=== PATIENT | female | born 1955 | race Caucasian/White ===

== ENCOUNTER 2022-03-22 19:39 | Emergency (ER) | payer MEDICARE, SELFPAY ==
--- NOTE | ~2022-03-22 | CT_ITS ---
EXAMINATION: CT abdomen pelvis w con DATE: 03/22/2022 23:29 INDICATION: Constipation. Nausea. TECHNIQUE: Computed tomography (CT) of the abdomen and pelvis was performed with 100 mL Omnipaque 350 intravenous contrast. Automated exposure control and iterative reconstruction technique were employe d. The dose-length product was 244.39 mGy-cm. COMPARISON: None. FINDINGS: The visualized portions of the lung bases demonstrate mild atelectasis. No pleural effusion . The heart size is normal. No pericardial effusion. The liver is normal. There is a gallstone in the gallbladder, which is normal in size. The spleen, pancreas, and right adrenal gland are normal. Ther e is a 3.7 cm mass in left adrenal gland with central calcifications. The kidneys are normal. There i s a 5.3 cm fusiform aneurysm of infrarenal aorta. 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 There is diverticulosis of the colon without evidence of di verticulitis. The appendix is normal. There are no pathologically enlarged lymph nodes. There is no f ree intraperitoneal fluid. There is lumbar dextroscoliosis and severe spondylosis. IMPRESSION: 1. 5.3 cm fusiform aneurysm of infrarenal aorta. Surgical consultation is recommended. 2. 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 3. 3.7 cm left adrenal mass, which is indeterminate for malignancy. Abdomen CT without and with contr ast is recommended. Reviewed, dictated and finalized at location A. MA HAT HYDRAULIC PRESS OPERATOR IMPRESSION: 1. 5.3 cm fusiform aneurysm of infrarenal aorta. Surgical consultation is recom mended. 2. 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 3. 3.7 cm left adrenal mass, which is indeterminate for malignancy. Abdomen CT without and with contrast is recommended.
--- NOTE | ~2022-03-22 | XR_ITS ---
EXAMINATION: XR abdomen/kub 1V INDICATION: Vomiting TECHNIQUE: Supine views of the abdomen were obtained on 2 radiographs. COMPARISON: None FINDINGS: There are 30 degrees of lumbar levoscoliosis. There are no dilated loops of bowel. The abdo men is relatively gasless. Phleboliths are noted in the right pelvis. There is severe lumbar spondylo sis. The visualized lung bases are clear. There is a questionable fusiform aneurysm of the abdominal aorta. IMPRESSION: 1. No radiographic correlate for the patient's symptoms. 2. Possible abdominal aortic aneurysm. Consider further evaluation with CT. Reviewed, dictated and finalized at location F. ERNAIL SCULPTOR
[2022-03-22 20:00] VITALS: BP 151/62; PULSE 67; RESP 20; TEMP 36.3; O2SAT 97
[2022-03-22 20:43] LABS: Basophils Absolute Auto 0.1 K/mm3 (0.0-0.1); Basophils Percent Auto 0.5 % (0.2-1.2); Eosinophils Percent Auto 0.2 % (0-4.4); Hematocrit 44.4 % (37.0-47.0); Immature Granulocyte Absolute 0.05 K/mm3 (0.00-0.031); Immature Granulocyte Percent A 0.4 % (0-0.5); Lymphocytes Absolute Auto 1.45 K/mm3 (0.9-3.2); Lymphocytes Percent Auto 11.3 % (18.3-44.2); Mean Corpuscular HGB Conc 33.8 g/dl (32-36); Mean Corpuscular Volume 91.7 fl (80-100); Mean Platelet Volume 10.6 fl (7.4-10.4); Monocytes Absolute Auto 0.2 K/mm3 (0.1-0.6); Monocytes Percent Auto 1.7 % (2.6-8.5); Neutrophils Percent Auto 85.9 % (45.5-73.1); Platelet Count Result 441 k/mm3 (150-375); Red Blood Count 4.84 M/mm3 (4.2-5.4); Red Cell Distribution Width 12.5 % (11.5-14.5); White Blood Count 12.8 K/mm3 (4.5-10.0)
[2022-03-22 20:57] LABS: Alanine Aminotransferase 13 U/L (6-35); Albumin Level 4.6 g/dL (3.5-5.1); Alkaline Phosphatase 105 U/L (38-126); Anion Gap 14 mmol/L (8-16); Aspartate Amino Transferase 19 U/L (14-36); Bilirubin,Total 0.6 mg/dL (0.2-1.3); Blood Urea Nitrogen 11 mg/dL (7-17); Calcium 9.7 mg/dL (8.4-10.2); Carbon Dioxide 28 mmol/L (22-30); Chloride 100 mmol/L (98-107); Estimated CRCL calculation 60 ml/min; Estimated Glomerular Filt Rate > 60; Glucose 166 mg/dL (65-110); Lipase 29 U/L (23-300); Potassium 3.5 mmol/L (3.4-5.0); Sodium 142 mmol/L (137-145)
[2022-03-22 21:37] VITALS: PULSE 61; RESP 13; O2SAT 99
[2022-03-22 21:45] VITALS: PULSE 58; RESP 20; O2SAT 99
[2022-03-22 22:00] VITALS: PULSE 57; RESP 15; O2SAT 98
[2022-03-22] MEDS: ONDANSETRON INJ 4 MG/2 ML VIAL IV PUSH (22:10)
[2022-03-22] MEDS: SODIUM CHLORIDE 0.9% IV 1,000 ML 999 ML IV CONT (22:10)
[2022-03-22] MEDS: FAMOTIDINE 20 MG/2 ML VIAL IV PUSH (22:10)
[2022-03-22 22:37] VITALS: BP 112/68; PULSE 82; RESP 19; O2SAT 97
[2022-03-22 23:03] LABS: Troponin I < 0.012 ng/mL (0.000-0.034)
[2022-03-22 23:19] LABS: Appearance Urine Cloudy (Clear); Bilirubin Urine Negative (Negative); Blood Urine Trace-intact (Negative); Color Urine Yellow (Yellow); Glucose Urine UA Negative (Negative); Ketones Urine 2+ mg/dL (Negative); Leukocyte Esterase Ur Negative LEU/UL (Negative); Nitrate Urine Negative (Negative); Protein Urine Negative (Negative); Urobilinogen Urine 0.2 mg/dL (<2.0); pH Urine 7.5 (5.0-9.0)
[2022-03-22 23:22] LABS: Bacteria Urine Trace /hpf; Mucus Urine Rare /lpf; Squamous Epithelial Cell Urine Rare /hpf (Few); WBC Urine 0-3 /hpf
[2022-03-22 23:23] LABS: Add Urine Microscopic? YES
[2022-03-22] MEDS: diphenhydrAMINE HCl INJ 50 MG/ML VIAL 12.5 MG IV PUSH (23:34)
[2022-03-22] MEDS: METOCLOPRAMIDE HCL INJ 10 MG/2 ML VIAL IV PUSH (23:34)
[2022-03-22 23:38] VITALS: BP 160/79; PULSE 77; RESP 18; O2SAT 97
[2022-03-22 23:51] LABS: Amphetamine Screen Urine Negative (Negative); Barbiturate Screen Urine Negative (Negative); Benzodiazepines Screen Urine Negative (Negative); Cannabinoid Screen Urine Negative (Negative); Cocaine Screen Urine Negative (Negative); Methadone Screen Urine Negative (Negative); Opiate Screen Urine Negative (Negative); Phencyclidine Screen Urine Negative (Negative)
--- NOTE | 2022-03-23 00:39 | ED.NAVMDI ---
HPI - Nausea/Vomiting/Diarrhea General Chief complaint: Nausea/Vomiting/Diarrhea Stated complaint: nausea Time Seen by Provider: 03/22/22 21:29 Source: patient Mode of arrival: ambulatory Limitations: no limitations History of Present Illness HPI Narrative: 67-year-old female presents today with complaints of nausea and dry heaves after she took some Dulcolax this morning. Patient states she was constipated for the last 4 days took some Dulcolax this morning did have a BM but has been nauseated since then with some dry heaves. Patient has not vomited. She denies any abdominal pain at this time. Patient does have some low back pain she has had for about 4 days. She denies dysuria, hematuria, urinary frequency, fever, chills, body aches. Related Data Allergies Allergy/AdvReac Type Severity Reaction Status Date / Time No Known Allergies Allergy Mild Verified 03/22/22 20:03 Review of Systems Review of Systems: CONSTITUTIONAL: Denies fever, chills, or sweats. EYES: Denies visual changes, redness, or discharge. ENT: Denies rhinorrhea, congestion, sore throat, or otalgia. CARDIOVASCULAR: Denies chest pain, palpitations, or edema. RESPIRATORY: Denies cough or dyspnea. GASTROINTESTINAL: Nausea and dry heaves. Denies abdominal pain, vomiting, or diarrhea. GENITOURINARY: Denies dysuria or hematuria. SKIN: Denies rash or itching. MUSCULOSKELETAL: Low back pain. denies joint pain, or myalgia. NEUROLOGIC: Denies headache, numbness, dizziness, or weakness. PSYCHIATRIC: Denies anxiety or depression. PMFSH Family History Family History Father Acute myocardial infarction, Onset Age: 68 Patient's father is Mother Family history of kidney disease Patient's mother is Social History Social History Smoking status: Current every day smoker Tobacco type: cigarettes Second hand tobacco smoke exposure: No Alcohol intake: never Substance use: never Exam Narrative: GENERAL: Well-appearing, well-nourished, and in no acute distress. HEAD: Normocephalic, atraumatic. EYES: PERRLA and EOMI. NECK: Supple. No adenopathy or masses. No carotid bruits or JVD CHEST: Clear to auscultation. No respiratory distress. No wheezes rales or rhonchi HEART: Regular rate and rhythm. No murmur heard. Normal peripheral pulses. ABDOMEN: Soft, nontender, nondistended, normal active bowel sounds. EXTREMITIES: Normal range of motion. No edema. SKIN: Warm, dry, no rash. NEURO: No focal deficits. Alert and oriented x3. PSYCH: Normal mood and affect. Course Course Emergency Course: Patient with improvement after the Zofran and denies any vomiting but with continued nausea. Reglan and Benadryl then given. Patient still with continued nausea. Minimal fluid intake. Patient given Haldol IM. Still continued nausea but states some improvement. She is able to tolerate Sprite. Will discharge home plan follow-up with primary and to return with any new or concerning symptoms. Reevaluation(s) Reevaluation #1: Patient still with nausea and some dry heaves medication ordered. Date: 03/22/22 Time: 23:25 Reevaluation #2: Patient currently still with nausea but it is better. No dry heaves. Will p.o. challenge. Date: 03/23/22 Time: 00:49 Vital Signs Vital signs: Vital Signs Temperature 97.4 F L 03/22/22 20:00 Pulse Rate 67 03/22/22 20:00 Respiratory Rate 20 03/22/22 20:00 Blood Pressure 151/62 H 03/22/22 20:00 Pulse Oximetry 97 03/22/22 20:00 Oxygen Delivery Room Air 03/22/22 20:00 Temperature 97.4 F L 03/22/22 20:00 Pulse Rate 95 03/23/22 02:12 Respiratory Rate 18 03/23/22 02:12 Blood Pressure 147/63 H 03/23/22 02:12 Pulse Oximetry 99 03/23/22 02:12 Oxygen Delivery Room Air 03/22/22 20:00 MDM - Nausea/Vomiting/Diarrhea MDM Narrative Medical decision patrick
[2022-03-23] MEDS: HALOPERIDOL LACTATE 5 MG/ML VIAL 2.5 MG IM (02:11)
[2022-03-23 02:12] VITALS: BP 147/63; PULSE 95; RESP 18; O2SAT 99
== END 2022-03-23 03:06 | disposition home or self-care (01) ==
PROVIDERS: Emergency Medicine; Emergency Provider Nurse Practitioner Family; PCP Internal Medicine
DX: R11.0 Nausea (principal); F17.210 Nicotine dependence, cigarettes, uncomplicated; I71.43 Infrarenal abdominal aortic aneurysm, without rupture; I74.5 Embolism and thrombosis of iliac artery; E27.9 Disorder of adrenal gland, unspecified; Z79.899 Other long term (current) drug therapy
CPT/HCPCS: 36415; 74018; 74177; 80053; 80307; 81001; 83690; 84484; 85025; 96372; 96374; 96375; 99284; J1200; J1630; J2405; J2765; J7030; Q9967

== ENCOUNTER 2022-03-27 09:32 | Observation (INO) | payer MEDICARE, SELFPAY ==
[2022-03-27] VITALS (28 sets, daily range): BP systolic 101–162; BP diastolic 53–82; PULSE 60–96; RESP 13–22; TEMP 36.5; O2SAT 90–100; BMI 20.9
--- NOTE | ~2022-03-27 | US_ITS ---
EXAMINATION: US abdomen limited DATE: 03/27/2022 12:08 INDICATION: Epigastric pain, nausea, vomiting and gallstones. TECHNIQUE: Multiple grayscale and Doppler ultrasound images of the abdomen were obtained. COMPARISON: CT dated 03/27/2022 and 03/22/2022 FINDINGS: Visualized portion of the body of the pancreas appears normal. Portions of the head and tail are obsc ured. Liver has normal echogenicity and contour, with a smooth surface. No liver lesion identified. M inimal intrahepatic biliary duct dilation which appears similar on the prior CT studies. Portal venou s flow was seen in the hepatopetal, normal direction and has normal Doppler waveform. 1.6 cm shadowin g gallstone at the fundus of the normal-appearing nondilated gallbladder. The common bile duct measur es 3 mm, which is normal. Sonographic Wen sign was reported as positive by the product craftsman.The vis ualized proximal inferior vena cava is normal. 5.3 cm diameter fusiform abdominal aortic aneurysm. IMPRESSION: 1. Cholelithiasis with positive sonographic Wen's on but without evident dilation the gallbladder or abnormal gallbladder wall thickening to more specifically suggest acute cholecystitis. Could consi heydi HIDA scan for further evaluation for acute cholecystitis as clinically indicated. 2. Unchanged minimal central intrahepatic biliary ductal dilation which is unchanged since 03/22/2022 and with normal caliber common bile duct. Correlate with liver function tests. If clinically indicat ed could also consider MRCP for further evaluation. 3. 5.3 cm fusiform abdominal aortic aneurysm. Reviewed, dictated and finalized at location A. ATIONS TEAM LEADER IMPRESSION: 1. Cholelithiasis with positive sonographic Wen's on but without evident dil ation the gallbladder or abnormal gallbladder wall thickening to more specifica lly suggest acute cholecystitis. Could consider HIDA scan for further evaluatio n for acute cholecystitis as clinically indicated. 2. Unchanged minimal central intrahepatic biliary ductal dilation which is unch anged since 03/22/2022 and with normal caliber common bile duct. Correlate with liver function tests. If clinically indicated could also consider MRCP for fur ther evaluation. 3. 5.3 cm fusiform abdominal aortic aneurysm.
--- NOTE | ~2022-03-27 | CT_ITS ---
EXAMINATION: CT abdomen pelvis w con DATE: 03/27/2022 10:37 INDICATION: Epigastric pain, nausea and vomiting TECHNIQUE: Computed tomography (CT) of the abdomen and pelvis was performed with 100 mL Omnipaque-350 intravenous contrast. Automated exposure control and iterative reconstruction technique were employe d. The dose-length product was 175.58 mGy-cm. COMPARISON: None FINDINGS: Near linear band of discoid atelectasis in the left lower lobe along with more nodular opacities at t he anterobasilar left lower lobe which are new since study from 5 days prior which would be most cons istent with pneumonia. Heart size is normal. No pericardial or pleural effusion. Geographic region of focal hepatic steatosis at the ligamentum teres. Rim calcified gallstone within the decompressed gal lbladder. No intra or extra hepatic biliary ductal dilation. Pancreas, spleen, right adrenal gland an d bilateral kidneys are normal. 3.5 cm left adrenal mass with central calcifications. 5.2 similar fus iform infrarenal abdominal aortic aneurysm. Chronic total occlusion of the left common and external i liac arteries. There is reconstitution of flow in the left internal iliac and left common femoral art eries via collaterals. Bladder, anteverted uterus and lateral adnexa are unremarkable. There is moder ate colonic diverticulosis with a sigmoid predominance. There is no adjacent inflammatory change to suggest diverticulitis. Small bowel and appendix are normal. No free intraperitoneal gas or fluid. N o pathologically enlarged abdominal or pelvic lymphadenopathy. Lumbar dextroscoliosis with severe spo ndylosis. IMPRESSION: 1. Somewhat nodular lung disease at the anterobasilar left lower lobe new since study 5 days prior wh ich would be most consistent with pneumonia. 2. Cholelithiasis. 3. 5.2 cm fusiform infrarenal abdominal aortic aneurysm for which surgical consultation would be kev mmended. 4. Unchanged total occlusion of the left common and external iliac arteries. 5. Indeterminate 3.5 cm left adrenal mass. Would recommend further evaluation with pre and postcontra st MRI or CT. Reviewed, dictated and finalized at location A. RONMENTAL HEALTH AND SAFETY INTERN IMPRESSION: 1. Somewhat nodular lung disease at the anterobasilar left lower lobe new since study 5 days prior which would be most consistent with pneumonia. 2. Cholelithiasis. 3. 5.2 cm fusiform infrarenal abdominal aortic aneurysm for which surgical cons ultation would be recommended. 4. Unchanged total occlusion of the left common and external iliac arteries. 5. Indeterminate 3.5 cm left adrenal mass. Would recommend further evaluation w ith pre and postcontrast MRI or CT.
--- NOTE | ~2022-03-27 | NM_ITS ---
EXAMINATION: NM hepatobiliary w pharm DATE: 03/29/2022 14:37 INDICATION: Cholelithiasis. COMPARISON: None. TECHNIQUE: 5.0 mCi Tc-99m mebrofenin (Choletec) was administered intravenously. Scintigraphic images of the abdomen were obtained for one hour. 1.06 mcg sincalide (Kinevac) was administered by slow int ravenous infusion, and imaging was continued for 30 minutes. Gallbladder ejection fraction was calcul ated by the technologist. FINDINGS: There is normal clearance of radiotracer from the blood pool. There is homogeneous tracer uptake by t he liver. Activity progresses to the gallbladder and bowel. The gallbladder ejection fraction (GBEF) is 63% (normal 10-90%, but most patient with gallbladder dysfunction have GBEF < 35% which does over lap with the normal range). IMPRESSION: 1. Normal hepatobiliary scan. Reviewed, dictated and finalized at location A. D AND PASTRY BAKER
[2022-03-27 09:51] LABS: Basophils Percent Auto 0.2 % (0.2-1.2); Hematocrit 48.3 % (37.0-47.0); Hemoglobin 16.4 g/dL (12.0-15.0); Immature Granulocyte Absolute 0.07 K/mm3 (0.00-0.031); Immature Granulocyte Percent A 0.4 % (0-0.5); Lymphocytes Absolute Auto 1.53 K/mm3 (0.9-3.2); Lymphocytes Percent Auto 8.8 % (18.3-44.2); Mean Corpuscular Hemoglobin 31.2 pg (26-34); Mean Platelet Volume 10.7 fl (7.4-10.4); Monocytes Absolute Auto 0.7 K/mm3 (0.1-0.6); Monocytes Percent Auto 4.2 % (2.6-8.5); Neutrophils Percent Auto 86.4 % (45.5-73.1); Platelet Count Result 414 k/mm3 (150-375); Red Blood Count 5.25 M/mm3 (4.2-5.4); Red Cell Distribution Width 12.8 % (11.5-14.5); White Blood Count 17.3 K/mm3 (4.5-10.0)
[2022-03-27 10:05] LABS: Alanine Aminotransferase 17 U/L (6-35); Albumin Level 4.5 g/dL (3.5-5.1); Alkaline Phosphatase 99 U/L (38-126); Anion Gap 12 mmol/L (8-16); Aspartate Amino Transferase 21 U/L (14-36); Bilirubin,Total 0.6 mg/dL (0.2-1.3); Blood Urea Nitrogen 21 mg/dL (7-17); Calcium 9.8 mg/dL (8.4-10.2); Carbon Dioxide 33 mmol/L (22-30); Chloride 98 mmol/L (98-107); Estimated CRCL calculation 63 ml/min; Estimated Glomerular Filt Rate > 60; Glucose 143 mg/dL (65-110); Lipase 41 U/L (23-300); Potassium 3.1 mmol/L (3.4-5.0); Sodium 143 mmol/L (137-145)
--- NOTE | 2022-03-27 10:09 | ED.NAVMDI ---
HPI - Nausea/Vomiting/Diarrhea General Chief complaint: Nausea/Vomiting/Diarrhea <Tamra Putnam PA-C - Last Filed: 03/27/22 14:56> Stated complaint: nausea <Tamra Putnam PA-C - Last Filed: 03/27/22 14:56> Time Seen by Provider: 03/27/22 09:54 <Tamra Putnam PA-C - Last Filed: 03/27/22 14:56> Source: patient <SUSHIL Knight Last Filed: 03/27/22 14:56> Mode of arrival: ambulatory <Tamra Putnam PA-C - Last Filed: 03/27/22 14:56> Limitations: no limitations <Tamra Putnam PA-C - Last Filed: 03/27/22 14:56> History of Present Illness HPI Narrative: This is a 67 year old female that presents to the ER for nausea and vomiting. Ongoing over the last week. Reports she was seen in the ER for this 4 days ago. She was feeling better initially, but symptoms have now returned. Reports burning epigastric pain. Denies fever, chest pain, shortness of breath, diarrhea, or dysuria. <Tamra Putnam PA-C - Last Filed: 03/27/22 14:56> Related Data Allergies/Adverse reactions: Allergies Allergy/AdvReac Type Severity Reaction Status Date / Time No Known Allergies Allergy Mild Verified 03/27/22 09:42 <Tamra Putnam PA-C - Last Filed: 03/27/22 14:56> Review of Systems Review of Systems: CONSTITUTIONAL: Denies fever CARDIOVASCULAR: Denies chest pain RESPIRATORY: Denies dyspnea. GASTROINTESTINAL: Reports abdominal pain, nausea, vomiting. Denies diarrhea. GENITOURINARY: Denies dysuria <Tamra Putnam PA-C - Last Filed: 03/27/22 14:56> All systems reviewed & are unremarkable except as noted in HPI and below <Tamra Putnam PA-C - Last Filed: 03/27/22 14:56> [facility] Past Medical History Medical History: Medical History (Updated 03/27/22 @ 14:53 by Tamra L. Putnam, PA-C) History of hyperlipidemia History of hypothyroidism <Tamra Putnam PA-C - Last Filed: 03/27/22 14:56> Surgical History Surgical History: Surgical History (Updated 03/27/22 @ 14:32 by Gloria Ko NP) H/O knee surgery H/O tubal ligation H/O unilateral oophorectomy <Tamra Putnam PA-C - Last Filed: 03/27/22 14:56> Family History Family History: Family History Father Acute myocardial infarction, Onset Age: 68 Patient's father is Mother Family history of kidney disease Patient's mother is <Tamra Putnam PA-C - Last Filed: 03/27/22 14:56> Social History Social History: Social History (Updated 03/27/22 @ 14:32 by Gloria Ko NP) Social History: [facility] Smoking status: Current every day smoker Tobacco type: cigarettes Second hand tobacco smoke exposure: No Alcohol intake: never Substance use: never <Tamra Putnam PA-C - Last Filed: 03/27/22 14:56> Exam Narrative: GENERAL: Well-appearing, well-nourished, and in no acute distress. HEAD: Normocephalic, atraumatic. EYES: EOMI. ENT: Nares clear, no rhinorrhea or epistaxis. Mucous membranes dry. Oropharynx without tonsillar hypertrophy exudate or other lesions. CHEST: Clear to auscultation. No respiratory distress. No wheezes rales or rhonchi HEART: Regular rate and rhythm. No murmur heard. Normal peripheral pulses. ABDOMEN: Soft, nondistended, normal active bowel sounds. Mild tenderness to palpation in the epigastrium, without guarding. EXTREMITIES: Normal range of motion. No edema. Normal DP pulse on the right. Able to doppler DP and PT pulse in the left SKIN: Warm, dry, no rash. NEURO: No focal deficits. Alert and oriented x3. PSYCH: Normal mood and affect <Tamra Putnam PA-C - Last Filed: 03/27/22 14:56> Course FOREST ECOLOGY PROFESSOR/PA Physician Supervision For this patient encounter, I reviewed the FOREST ECOLOGY PROFESSOR or PA documentation, treatment plan, and medical decision making; and I had [id number] time with this patient. <Ayla Jimenez MD - Last Filed: 03/27/22 13:39> Consultations Co
[2022-03-27] MEDS: SODIUM CHLORIDE 0.9% IV 1,000 ML 999 ML IV CONT (10:14)
[2022-03-27] MEDS: ONDANSETRON INJ 4 MG/2 ML VIAL IV PUSH (10:15)
[2022-03-27] MEDS: PANTOPRAZOLE SODIUM IV 40 MG VIAL IV PUSH ×2 (10:16→20:54)
[2022-03-27] MEDS: METOCLOPRAMIDE HCL INJ 10 MG/2 ML VIAL IV PUSH (11:34)
[2022-03-27] MEDS: diphenhydrAMINE HCl INJ 50 MG/ML VIAL 25 MG IV PUSH ×2 (11:34→23:26)
[2022-03-27 11:36] LABS: Mucus Urine Rare /lpf; RBC Urine 0-2 /hpf (0-2); Squamous Epithelial Cell Urine Rare /hpf (Few); WBC Urine 0-3 /hpf
[2022-03-27 11:41] LABS: Appearance Urine Clear (Clear); Bilirubin Urine Negative (Negative); Blood Urine Trace-lysed (Negative); Color Urine Yellow (Yellow); Glucose Urine UA Negative (Negative); Ketones Urine Negative (Negative); Leukocyte Esterase Ur Negative LEU/UL (Negative); Nitrate Urine Negative (Negative); Protein Urine Negative (Negative); Specific Grav Ur 1.015 (1.001-1.035); Urobilinogen Urine 0.2 mg/dL (<2.0); pH Urine 7.5 (5.0-9.0)
[2022-03-27 11:47] LABS: Add Urine Microscopic? YES
--- NOTE | 2022-03-27 14:29 | PM.IMHP ---
H&P: HPI History of Present Illness Date/Time: 03/27/22 14:29 Chief Complaint: Nausea vomiting diarrhea Narrative: This is a 67-year-old female patient who has been complaining of nausea vomiting for the last week. She had been seen in this emergency room 4 days ago and had the symptoms for 4 days prior to coming into the ER that time. So she has had symptoms for total of 8 days. The patient was discharged home at that time. She denies any fever chest pain or shortness of breath no difficulty urinating. Her white count is 17.3. Potassium slightly low at 3.1. BUN 21 and creatinine 0.60 her urine toxicology screen was negative. Abdominal pelvis CT was read as following 1. Somewhat nodular lung disease at the anterobasilar left lower lobe new since study 5 days prior which would be most consistent with pneumonia. 2. Cholelithiasis. 3. 5.2 cm fusiform infrarenal abdominal aortic aneurysm for which surgical consultation would be recommended. 4. Unchanged total occlusion of the left common and external iliac arteries. 5. Indeterminate 3.5 cm left adrenal mass. Would recommend further evaluation with pre and postcontrast MRI or CT. The ER provider notify Dr. garcia concerning these findings. The patient was given Dr. Garcia as well number The patient was given IV fluids, IV Tylenol, Reglan, Zofran and Benadryl. The patient has not slept for days.. The patient was diagnosed with pneumonia and was started on a Zithromax and Rocephin. Abdominal ultrasound was read as the following 1. Cholelithiasis with positive sonographic Wen's on but without evident dilation the gallbladder or abnormal gallbladder wall thickening to more specifically suggest acute cholecystitis. Could consider HIDA scan for further evaluation for acute cholecystitis as clinically indicated. 2. Unchanged minimal central intrahepatic biliary ductal dilation which is unchanged since 03/22/2022 and with normal caliber common bile duct. Correlate with liver function tests. If clinically indicated could also consider MRCP for further evaluation. 3. 5.3 cm fusiform abdominal aortic aneurysm. Patient was admitted for observation status on a date of service of 03/27/2022. Review of Systems Review of Systems: See HPI All systems reviewed & are unremarkable except as noted in HPI and below Constitutional: Constitutional: Reports as per HPI and Reports no additional constitutional complaints Eyes: Eyes: Reports as per HPI and Reports no additional eye complaints ENT: Reports system reviewed and no additional complaints, except as documented and Reports Normal hearing present Cardiovascular: Cardiovascular: Reports no additional cardiovascular complaints Respiratory: Respiratory: Reports no additional respiratory complaints and Reports no additional respiratory complaints Gastrointestinal: Gastrointestinal: Reports as per HPI and Reports no additional gastrointestinal complaints Musculoskeletal: Musculoskeletal: Reports no additional musculoskeletal complaints Integumentary/Breasts: Skin/Breast: Reports system reviewed and no additional complaints, except as docu and Reports as per HPI Neurologic: Reports system reviewed and no additional complaints, except as documented, Reports as per HPI and Reports Normal hearing present Psychiatric: Psychiatric: Reports no additional psychiatric complaints and Reports as per HPI Endocrine: Endocrine: Reports no additional endocrine complaints Hematologic/Lymphatic: Hematologic/Lymphatic: Reports no additional hematologic/lymphatic complaints Allergic/Immunologic: Allergic/Immunologic: Reports no additional allergic/immunologic complaints [facility] Past Medical History Medical History History of hyperlipidemia History of hypothyroidism Surgical History Surgical History H/O knee surgery H/O tubal ligation H/O unilateral oophorectomy
[2022-03-27] MEDS: SODIUM CHLORIDE 0.9% IV 1,000 ML 125 ML IV CONT ×2 (15:12→23:23)
--- NOTE | 2022-03-27 15:30 | PC.NURSE ---
This patient, Camilla Espino, was admitted to [facility] Surg Room 313-01. Patient/family oriented to hospital policies and general routines including ID bracelet, bed and alarms, visiting hours, pain management, procedures, bathroom and other care routines, personal items, smoking policy, room service/diet, and visiting hours. Information on how to activate the Rapid Response Team has been discussed. Patient/Family are encouraged to report perceived risks to care and to ask questions if they do not understand what they are told or what they should do.
[2022-03-27] MEDS: POTASSIUM CHLORIDE INJ 40 MEQ in SODIUM CHLORIDE 0.9% IV 500 ML 130 MEQ IVPB (16:36)
[2022-03-27] MEDS: METOCLOPRAMIDE HCL INJ 10 MG/2 ML VIAL 5 MG IV PUSH ×3 (19:25→23:23)
[2022-03-27 20:06] LABS: Anion Gap 8 mmol/L (8-16); Blood Urea Nitrogen 16 mg/dL (7-17); Calcium 8.8 mg/dL (8.4-10.2); Carbon Dioxide 27 mmol/L (22-30); Chloride 105 mmol/L (98-107); Estimated CRCL calculation 63 ml/min; Estimated Glomerular Filt Rate > 60; Glucose 150 mg/dL (65-110); Potassium 3.3 mmol/L (3.4-5.0); Sodium 140 mmol/L (137-145)
[2022-03-28] MEDS: METOCLOPRAMIDE HCL INJ 10 MG/2 ML VIAL 5 MG IV PUSH ×3 (05:28→17:21)
[2022-03-28 05:48] LABS: Basophils Absolute Auto 0.1 K/mm3 (0.0-0.1); Basophils Percent Auto 0.3 % (0.2-1.2); Eosinophils Percent Auto 0.1 % (0-4.4); Hematocrit 41.3 % (37.0-47.0); Immature Granulocyte Absolute 0.04 K/mm3 (0.00-0.031); Immature Granulocyte Percent A 0.3 % (0-0.5); Lymphocytes Absolute Auto 1.89 K/mm3 (0.9-3.2); Lymphocytes Percent Auto 12.8 % (18.3-44.2); Mean Corpuscular HGB Conc 33.9 g/dl (32-36); Mean Corpuscular Hemoglobin 30.8 pg (26-34); Mean Platelet Volume 10.8 fl (7.4-10.4); Monocytes Absolute Auto 0.8 K/mm3 (0.1-0.6); Monocytes Percent Auto 5.5 % (2.6-8.5); Platelet Count Result 366 k/mm3 (150-375); Red Blood Count 4.54 M/mm3 (4.2-5.4); Red Cell Distribution Width 12.6 % (11.5-14.5); White Blood Count 14.8 K/mm3 (4.5-10.0)
[2022-03-28 06:00] VITALS: BP 148/65; PULSE 51; RESP 18; TEMP 36.9; O2SAT 98
[2022-03-28 06:01] LABS: Alanine Aminotransferase 14 U/L (6-35); Albumin Level 3.8 g/dL (3.5-5.1); Alkaline Phosphatase 76 U/L (38-126); Anion Gap 9 mmol/L (8-16); Aspartate Amino Transferase 19 U/L (14-36); Bilirubin,Total 0.7 mg/dL (0.2-1.3); Blood Urea Nitrogen 12 mg/dL (7-17); Calcium 8.6 mg/dL (8.4-10.2); Carbon Dioxide 24 mmol/L (22-30); Chloride 106 mmol/L (98-107); Estimated CRCL calculation 74 ml/min; Estimated Glomerular Filt Rate > 60; Glucose 111 mg/dL (65-110); Lactic Acid Reflex 0.8 mmol/L (0.7-2.0); Magnesium 1.8 mg/dL (1.6-2.3); Sodium 139 mmol/L (137-145)
[2022-03-28] MEDS: PANTOPRAZOLE SODIUM IV 40 MG VIAL IV PUSH ×2 (08:46→21:00)
[2022-03-28] MEDS: SODIUM CHLORIDE 0.9% IV 1,000 ML 125 ML IV CONT ×2 (08:46→17:26)
--- NOTE | 2022-03-28 09:19 | WPDGICN ---
Assessment and Plan Assessment and plan (1) Intractable nausea and vomiting: Code(s): R11.2 - Nausea with vomiting, unspecified Status: Acute Assessment and Plan: evaluating for GB disease, pending hida scan and also will get MRCP (noted mild bile duct dilation in ultrasound) but normal liver enzymes and lipase also being treated for pneumonia (2) Cholelithiasis: Code(s): K80.20 - Calculus of gallbladder without cholecystitis without obstruction Status: Acute Assessment and Plan: pending hida scan (3) Dilated bile duct: Code(s): K83.8 - Other specified diseases of biliary tract Status: Acute Assessment and Plan: mrpc ordered (4) Pneumonia: Qualifiers: Laterality: left Lung location: lower lobe of lung Pneumonia type: due to unspecified organism Qualified Code(s): J18.9 - Pneumonia, unspecified organism Code(s): J18.9 - Pneumonia, unspecified organism Status: Acute Assessment and Plan: on abx (5) Leukocytosis: Code(s): D72.829 - Elevated white blood cell count, unspecified Status: Acute (6) Abdominal aortic aneurysm (AAA) greater than 5.0 cm in diameter in female: Code(s): I71.40 - Abdominal aortic aneurysm, without rupture, unspecified Status: Acute Assessment and Plan: will need follow-up with vascular surgery GI Consult Note Consult date/time: 03/28/22 09:19 Reason for consult: nausea, dilated bile duct HPI: Camilla Espino is a 67 year old female with nausea for last week in fact she came to ER 4 days ago for nausea and sent home with medical treatment but still persistent nausea and she returned. She denies fever, chest pain or shortness of breath. Blood work showed leukocytosis with white count is 17.3, potassium 3.1.? BUN 21 and creatinine 0.60 her urine toxicology screen was negative, liver enzymes and lipase normal. Abdominal pelvis CT reviewed, somewhat nodular lung disease at the anterobasilar left lower lobe new since study 5 days prior which would be most consistent with pneumonia, cholelithiasis, 5.2 cm fusiform infrarenal abdominal aortic aneurysm, Indeterminate 3.5 cm left adrenal mass. The patient was diagnosed with pneumonia and was started on a Zithromax and Rocephin. She is still quite nauseous, denies abdominal pain. She still is not feeling like eating. Review of Systems Review of Systems: CONSTITUTIONAL: Denies fever, chills, or sweats. EYES: Denies visual changes, redness, or discharge. ENT: Denies rhinorrhea, congestion, sore throat, or otalgia. CARDIOVASCULAR: Denies chest pain, palpitations, or edema. RESPIRATORY: Denies cough or dyspnea. GASTROINTESTINAL: Nausea and dry heaves. Denies abdominal pain, vomiting, or diarrhea. GENITOURINARY: Denies dysuria or hematuria. SKIN: Denies rash or itching. MUSCULOSKELETAL: Low back pain. denies joint pain, or myalgia. NEUROLOGIC: Denies headache, numbness, dizziness, or weakness. PSYCHIATRIC: Denies anxiety or depression. [facility] Past Medical History Medical History (Updated 03/28/22 @ 09:24 by Mikey Barraza MD) Dilated bile duct History of hyperlipidemia History of hypothyroidism Leukocytosis Surgical History Surgical History H/O knee surgery H/O tubal ligation H/O unilateral oophorectomy Family History Family History Father Acute myocardial infarction, Onset Age: 68 Patient's father is Mother Family history of kidney disease Patient's mother is Sibling Hx of CABG Sibling Acute myocardial infarction Social History Social History (Updated 03/27/22 @ 17:40 by Gloria Ko NP) Social History: Patient continues to smoke 1 pack a cigarettes per day. The patient lives with her who is disabled. She has 2 children. She is retired. Her i
--- NOTE | 2022-03-28 10:14 | PM.IMPN ---
Progress Note: A&P Assessment and Plan (1) Cholelithiasis: Code(s): K80.20 - Calculus of gallbladder without cholecystitis without obstruction Status: Acute Assessment and Plan: - GI consulted. -will get a HIDA scan. (2) Abdominal aortic aneurysm (AAA) greater than 5.0 cm in diameter in female: Code(s): I71.40 - Abdominal aortic aneurysm, without rupture, unspecified Status: Acute Assessment and Plan: As per ED notes Spoke with Dr. Garcia, vascular at [facility], about patient and workup. Patient may follow up outpatient for vascular findings. She is to call their office at ? (3) Pneumonia: Qualifiers: Laterality: left Lung location: lower lobe of lung Pneumonia type: due to unspecified organism Qualified Code(s): J18.9 - Pneumonia, unspecified organism Code(s): J18.9 - Pneumonia, unspecified organism Status: Acute Assessment and Plan: -CT is consistent with pneumonia. Blood and sputums are pending. -tailor antibiotics to cultures. -community-acquired stewardship antibiotics - azithromycin Rocephin was started. -albuterol inhaler has been ordered (4) Adrenal mass: Code(s): E27.8 - Other specified disorders of adrenal gland Status: Acute Assessment and Plan: Indeterminate 3.5 cm left adrenal mass. Would recommend further evaluation with pre and postcontrast MRI or CT. (5) Hypothyroidism: Code(s): E03.9 - Hypothyroidism, unspecified Status: Acute Assessment and Plan: Check thyroid level and continue levothyroxine. Subjective Date/time seen: 03/28/22 10:14 minimal abdominal pain. No other complaints Review of Systems Review of Systems: CONSTITUTIONAL: Denies fever, chills, or sweats. EYES: Denies visual changes, redness, or discharge. ENT: Denies rhinorrhea, congestion, sore throat, or otalgia. CARDIOVASCULAR: Denies chest pain, palpitations, or edema. RESPIRATORY: Denies cough or dyspnea. GASTROINTESTINAL: Nausea and dry heaves. Denies abdominal pain, vomiting, or diarrhea. GENITOURINARY: Denies dysuria or hematuria. SKIN: Denies rash or itching. MUSCULOSKELETAL: Low back pain. denies joint pain, or myalgia. NEUROLOGIC: Denies headache, numbness, dizziness, or weakness. PSYCHIATRIC: Denies anxiety or depression. Exam Narrative: GENERAL: Well-appearing, well-nourished, and in no acute distress. HEAD: Normocephalic, atraumatic. EYES: EOMI. ENT: Nares clear, no rhinorrhea or epistaxis. Mucous membranes dry. Oropharynx without tonsillar hypertrophy exudate or other lesions. CHEST: Clear to auscultation. No respiratory distress. No wheezes rales or rhonchi HEART: Regular rate and rhythm. No murmur heard. Normal peripheral pulses. ABDOMEN: Soft, nondistended, normal active bowel sounds. Mild tenderness to palpation in the epigastrium, without guarding. EXTREMITIES: Normal range of motion. No edema. Normal DP pulse on the right. Able to doppler DP and PT pulse in the left SKIN: Warm, dry, no rash. NEURO: No focal deficits. Alert and oriented x3. PSYCH: Normal mood and affect Objective Data Vital Signs Vital Signs: Vital Signs - 24 hr 03/27/22 10:40 03/27/22 10:41 03/27/22 10:46 Temperature Pulse Rate 86 82 82 Respiratory Rate 15 17 22 H Blood Pressure 162/80 H 152/61 H Pulse Oximetry 97 99 96 Oxygen Delivery 03/27/22 11:34 03/27/22 11:45 03/27/22 12:00 Temperature Pulse Rate 77 65 Respiratory Rate 16 21 H Blood Pressure Pulse Oximetry 97 100 96 Oxygen Delivery 03/27/22 12:15 03/27/22 12:20 03/27/22 12:30 Temperature Pulse Rate 60 Respiratory Rate 19 21 H Blood Pressure 128/57 L 141/56 H Pulse Oximetry 90 92 93 Oxygen Delivery 03/27/22 12:31 03/27/22 12:45 03/27/22 12:46 Temperature Pulse Rate 61 69 67 Respiratory Rate 22 H 20 20 Blood Pressure 104/54 L Pulse Oximetry 96 94 94 Oxygen Delivery 03/27/22 13:01 03/27/22
--- NOTE | 2022-03-28 12:17 | PC.NURSE ---
pt left floor @ 1217 for MRI procedure.
--- NOTE | 2022-03-28 12:36 | PC.NURSE ---
pt returned to floor @ 6068
[2022-03-28 15:00] VITALS: BP 172/63; PULSE 78; RESP 16; TEMP 37.3; O2SAT 97
[2022-03-28] MEDS: diphenhydrAMINE HCl INJ 50 MG/ML VIAL 25 MG IV PUSH (18:38)
[2022-03-28] MEDS: KCL 20 MEQ/SW 100 ML 100 ML 50 MEQ IVPB (21:00)
[2022-03-28] MEDS: MELATONIN 5 MG TABLET PO (21:00)
[2022-03-28 21:52] VITALS: BP 147/62; PULSE 81; RESP 18; TEMP 36.9; O2SAT 96
[2022-03-29 00:25] LABS: Potassium 3.2 mmol/L (3.4-5.0)
[2022-03-29] MEDS: diphenhydrAMINE HCl INJ 50 MG/ML VIAL 25 MG IV PUSH ×2 (00:38→08:23)
[2022-03-29] MEDS: METOCLOPRAMIDE HCL INJ 10 MG/2 ML VIAL 5 MG IV PUSH ×2 (00:39→05:55)
[2022-03-29] MEDS: SODIUM CHLORIDE 0.9% IV 1,000 ML 125 ML IV CONT ×2 (04:55→15:27)
[2022-03-29 06:00] VITALS: BP 150/84; PULSE 80; RESP 18; TEMP 36.6; O2SAT 97
--- NOTE | 2022-03-29 07:31 | PC.NURSE ---
pt taken down for MRCP at 0717, returned to floor now, she is refusing to have test done states she is too nauseous and cannot lay flat for 40 minutes
[2022-03-29] MEDS: PANTOPRAZOLE SODIUM IV 40 MG VIAL IV PUSH ×2 (08:23→21:05)
--- NOTE | 2022-03-29 09:23 | PM.IMPN ---
Progress Note: A&P Assessment and Plan (1) Cholelithiasis: Code(s): K80.20 - Calculus of gallbladder without cholecystitis without obstruction Status: Acute Assessment and Plan: - GI consulted. -will get a HIDA scan today -patient refused MRCP because she cannot lie flat (2) Abdominal aortic aneurysm (AAA) greater than 5.0 cm in diameter in female: Code(s): I71.40 - Abdominal aortic aneurysm, without rupture, unspecified Status: Acute Assessment and Plan: As per ED notes Spoke with Dr. Garcia, vascular at [facility], about patient and workup. Patient may follow up outpatient for vascular findings. She is to call their office at ? (3) Pneumonia: Qualifiers: Laterality: left Lung location: lower lobe of lung Pneumonia type: due to unspecified organism Qualified Code(s): J18.9 - Pneumonia, unspecified organism Code(s): J18.9 - Pneumonia, unspecified organism Status: Acute Assessment and Plan: -CT is consistent with pneumonia. -community-acquired stewardship antibiotics - azithromycin Rocephin was started. -albuterol inhaler has been ordered (4) Adrenal mass: Code(s): E27.8 - Other specified disorders of adrenal gland Status: Acute Assessment and Plan: Indeterminate 3.5 cm left adrenal mass. Would recommend further evaluation with pre and postcontrast MRI or CT. (5) Hypothyroidism: Code(s): E03.9 - Hypothyroidism, unspecified Status: Acute Assessment and Plan: Check thyroid level and continue levothyroxine. Subjective Date/time seen: 03/29/22 09:23 Patient still reports nausea Review of Systems Review of Systems: CONSTITUTIONAL: Denies fever, chills, or sweats. EYES: Denies visual changes, redness, or discharge. ENT: Denies rhinorrhea, congestion, sore throat, or otalgia. CARDIOVASCULAR: Denies chest pain, palpitations, or edema. RESPIRATORY: Denies cough or dyspnea. GASTROINTESTINAL: Nausea and dry heaves. Denies abdominal pain, vomiting, or diarrhea. GENITOURINARY: Denies dysuria or hematuria. SKIN: Denies rash or itching. MUSCULOSKELETAL: Low back pain. denies joint pain, or myalgia. NEUROLOGIC: Denies headache, numbness, dizziness, or weakness. PSYCHIATRIC: Denies anxiety or depression. Exam Narrative: GENERAL: Well-appearing, well-nourished, and in no acute distress. HEAD: Normocephalic, atraumatic. EYES: EOMI. ENT: Nares clear, no rhinorrhea or epistaxis. Mucous membranes dry. Oropharynx without tonsillar hypertrophy exudate or other lesions. CHEST: Clear to auscultation. No respiratory distress. No wheezes rales or rhonchi HEART: Regular rate and rhythm. No murmur heard. Normal peripheral pulses. ABDOMEN: Soft, nondistended, normal active bowel sounds. Mild tenderness to palpation in the epigastrium, without guarding. EXTREMITIES: Normal range of motion. No edema. Normal DP pulse on the right. Able to doppler DP and PT pulse in the left SKIN: Warm, dry, no rash. NEURO: No focal deficits. Alert and oriented x3. PSYCH: Normal mood and affect Objective Data Vital Signs Vital Signs: Vital Signs - 24 hr 03/28/22 15:00 03/28/22 21:52 03/28/22 21:00 Temperature 99.1 F 98.4 F Pulse Rate 78 81 Respiratory Rate 16 18 Blood Pressure 172/63 H 147/62 H Pulse Oximetry 97 96 Oxygen Delivery Room Air 03/29/22 06:00 Temperature 97.8 F Pulse Rate 80 Respiratory Rate 18 Blood Pressure 150/84 H Pulse Oximetry 97 Oxygen Delivery Intake/Output Intake/Output: Intake & Output 03/26/22 03/27/22 03/28/22 03/29/22 23:59 23:59 23:59 23:59 Intake Total 3180 / 3180 2540 / 2540 1000 / 1000 Output Total 300 / 300 500 / 500 1100 / 1100 Balance 2880 / 2880 2040 / 204 -100 / -100 Meds/Results Medications: Active Medications Generic Name Dose Route Start Last Admin Trade Name Freq PRN Reason Stop Dose Admin Albuterol 2 puff 03/27/22 17:43 Albuterol Sulfate (*
[2022-03-29] MEDS: POTASSIUM CHLORIDE INJ 40 MEQ in SODIUM CHLORIDE 0.9% IV 500 ML 130 MEQ IVPB (11:03)
[2022-03-29 14:59] VITALS: BP 153/68; PULSE 59; RESP 20; TEMP 36.9; O2SAT 97
[2022-03-29] MEDS: ONDANSETRON INJ 4 MG/2 ML VIAL IV PUSH (15:27)
[2022-03-29 21:53] VITALS: BP 164/77; PULSE 68; RESP 20; TEMP 37.2; O2SAT 97
[2022-03-30] MEDS: SODIUM CHLORIDE 0.9% IV 1,000 ML 125 ML IV CONT (02:42)
[2022-03-30 05:44] VITALS: BP 147/80; PULSE 87; RESP 20; TEMP 36.6; O2SAT 96
[2022-03-30] MEDS: LEVOTHYROXINE SODIUM 150 MCG TABLET PO (06:09)
[2022-03-30 07:49] LABS: Basophils Absolute Auto 0.1 K/mm3 (0.0-0.1); Basophils Percent Auto 0.4 % (0.2-1.2); Eosinophils Absolute Auto 0.1 K/mm3 (0-0.3); Eosinophils Percent Auto 0.8 % (0-4.4); Hematocrit 46.2 % (37.0-47.0); Hemoglobin 15.9 g/dL (12.0-15.0); Immature Granulocyte Absolute 0.05 K/mm3 (0.00-0.031); Immature Granulocyte Percent A 0.3 % (0-0.5); Lymphocytes Absolute Auto 2.83 K/mm3 (0.9-3.2); Lymphocytes Percent Auto 19.7 % (18.3-44.2); Mean Corpuscular HGB Conc 34.4 g/dl (32-36); Mean Corpuscular Hemoglobin 31.4 pg (26-34); Mean Corpuscular Volume 91.1 fl (80-100); Mean Platelet Volume 10.5 fl (7.4-10.4); Monocytes Absolute Auto 0.9 K/mm3 (0.1-0.6); Monocytes Percent Auto 6.2 % (2.6-8.5); Neutrophils Absolute Auto 10.5 K/mm3 (1.3-6.7); Neutrophils Percent Auto 72.6 % (45.5-73.1); Platelet Count Result 420 k/mm3 (150-375); Red Blood Count 5.07 M/mm3 (4.2-5.4); Red Cell Distribution Width 12.2 % (11.5-14.5); White Blood Count 14.4 K/mm3 (4.5-10.0)
[2022-03-30 08:00] VITALS: PULSE 87; RESP 20; O2SAT 96
[2022-03-30 08:05] LABS: Anion Gap 10 mmol/L (8-16); Blood Urea Nitrogen 13 mg/dL (7-17); Calcium 8.7 mg/dL (8.4-10.2); Carbon Dioxide 22 mmol/L (22-30); Chloride 104 mmol/L (98-107); Estimated CRCL calculation 74 ml/min; Estimated Glomerular Filt Rate > 60; Glucose 78 mg/dL (65-110); Magnesium 1.7 mg/dL (1.6-2.3); Potassium 3.1 mmol/L (3.4-5.0); Sodium 136 mmol/L (137-145)
[2022-03-30] MEDS: PANTOPRAZOLE SODIUM IV 40 MG VIAL IV PUSH (08:24)
[2022-03-30] MEDS: POTASSIUM CHLORIDE 20 MEQ TABLET 40 MEQ PO (11:07)
[2022-03-30] MEDS: MAGNESIUM OXIDE 400 MG TABLET PO (11:11)
[2022-03-30] MEDS: ONDANSETRON INJ 4 MG/2 ML VIAL IV PUSH (11:12)
--- NOTE | 2022-03-30 12:05 | WPDGIPROGNO ---
Progress Note: A&P Assessment and Plan (1) Intractable nausea and vomiting: Code(s): R11.2 - Nausea with vomiting, unspecified Status: Acute Assessment and Plan: almost resolved and tolerating diet she can go home and I will set up EGD as outpatient (2) Cholelithiasis: Code(s): K80.20 - Calculus of gallbladder without cholecystitis without obstruction Status: Acute Assessment and Plan: hida scan negative, no abdominal pain (3) Leukocytosis: Code(s): D72.829 - Elevated white blood cell count, unspecified Status: Acute (4) Abdominal aortic aneurysm (AAA) greater than 5.0 cm in diameter in female: Code(s): I71.40 - Abdominal aortic aneurysm, without rupture, unspecified Status: Acute Assessment and Plan: will need follow-up, by primary team (5) Pneumonia: Qualifiers: Laterality: left Lung location: lower lobe of lung Pneumonia type: due to unspecified organism Qualified Code(s): J18.9 - Pneumonia, unspecified organism Code(s): J18.9 - Pneumonia, unspecified organism Status: Acute Assessment and Plan: on abx Subjective Date/time seen: 03/30/22 12:05 Interval history: she is doing much better, denies any abdominal pain and nausea almost gone. She thinks that could go home later Review of Systems Review of Systems: All systems reviewed & are unremarkable except as noted in HPI and below Exam Const: General: comfortable and no acute distress HENMT: Face/Nose/Sinus: Normal nares present Eyes: General: appearance normal, both eyes and all related structures Neck: Neck: no JVD Resp: Auscultation: clear to auscultation bilaterally Cardio: Rate: regular rate Rhythm: regular rhythm GI: Inspection: non-distended GI Palp: Yes Soft to palpation and No Tenderness to palpation present (GI) Auscultation: normal bowel sounds Skin: General skin exam: normal color Neuro: General: gait normal Speech: normal speech Extrem: General: normal to inspection Psych: Mental Status: mental status grossly normal Objective Data Vital Signs Vital Signs: Vital Signs - 24 hr 03/29/22 14:59 03/29/22 21:53 03/30/22 05:44 Temperature 98.5 F 98.9 F 98 F Pulse Rate 59 L 68 87 Respiratory Rate 20 20 20 Blood Pressure 153/68 H 164/77 H 147/80 H Pulse Oximetry 97 97 96 Oxygen Delivery 03/30/22 08:00 Temperature Pulse Rate 87 Respiratory Rate 20 Blood Pressure Pulse Oximetry 96 Oxygen Delivery Room Air Intake/Output Intake/Output: Intake & Output 03/27/22 03/28/22 03/29/22 03/30/22 23:59 23:59 23:59 23:59 Intake Total 3180 2540 3300 100 Output Total 751 261 4643 1200 Balance 2880 2040 750 -1100 Meds/Results Medications: Active Medications Generic Name Dose Route Start Last Admin Trade Name Freq PRN Reason Stop Dose Admin Albuterol 2 puff 03/27/22 17:43 Albuterol Sulfate (*Sp) Aerosol 1 Puff INHALATION Q6HRT PRN Shortness Of Breath Ceftriaxone Sodium/Dextrose 1 gm in 50 mls @ 100 mls/hr 03/28/22 18:00 03/29/22 17:49 Rocephin 1 Gm/D5w 50 Ml IVPB Infused Q24H DARNELL Infusion Azithromycin 500 mg in 250 mls @ 250 mls/hr 03/28/22 18:00 03/29/22 19:16 Zithromax IVPB Infused Q24H DARNELL Infusion Levothyroxine Sodium 150 mcg 03/28/22 06:30 03/30/22 06:09 Levothyroxine Sodium 150 Mcg Tablet PO 150 mcg DAILY@0630 DARNELL Administration Magnesium Oxide 400 mg 03/30/22 12:00 03/30/22 11:11 Magnesium Oxide 400 Mg Tablet PO 400 mg DAILY@1200 DARNELL Administration Melatonin 5 mg 03/27/22 21:00 03/29/22 21:05 Melatonin 5 Mg Tablet PO Not Given HS DARNELL Nicotine 1 patch 03/27/22 09:00 03/30/22 08:27 Nicotine (*Pbkc) 21 Mg Patch TRANSDERM Not Given QAM [facility] Ondansetron HCl 4 mg 03/29/22 14:52 03/30/22 11:12 Ondansetron Inj 4 Mg/2 Ml Vial IV PUSH 4 mg Q6H PRN Administration Nausea And Vomiting Pantoprazole Sodium 4
[2022-03-30 13:55] VITALS: BP 150/81; PULSE 90; RESP 18; TEMP 36.8; O2SAT 96
--- NOTE | 2022-03-30 14:29 | PM.DS ---
DS: Admitting Diagnosis Discharge Date 03/30/22 Admitting Diagnosis Nausea, vomiting DS: Discharge Diagnosis Discharge Diagnosis (1) Cholelithiasis: Code(s): K80.20 - Calculus of gallbladder without cholecystitis without obstruction Status: Acute (2) Abdominal aortic aneurysm (AAA) greater than 5.0 cm in diameter in female: Code(s): I71.40 - Abdominal aortic aneurysm, without rupture, unspecified Status: Acute (3) Pneumonia: Qualifiers: Laterality: left Lung location: lower lobe of lung Pneumonia type: due to unspecified organism Qualified Code(s): J18.9 - Pneumonia, unspecified organism Code(s): J18.9 - Pneumonia, unspecified organism Status: Acute (4) Adrenal mass: Code(s): E27.8 - Other specified disorders of adrenal gland Status: Acute (5) Hypothyroidism: Code(s): E03.9 - Hypothyroidism, unspecified Status: Acute (6) Intractable nausea and vomiting: Code(s): R11.2 - Nausea with vomiting, unspecified Status: Acute DS: Summary Hospital Course Reason for hospitalization: 67yo female with hypothyroidism here for nausea, vomiting. Please see H&P for details Hospital Course: Patient had over a week of symptoms prior to admission. WBC was 17.3.?BUN 21 and creatinine 0.60. UDS was negative.? 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 The ER provider notify Dr. Garcia concerning these findings.? The patient was given Dr. Garcia's number for her to follow up with Dr Garcia after discharge regarding the Abdominal aneurysm. The patient was given IV fluids, IV Tylenol, Reglan, Zofran and Benadryl.? The patient was also started on a Zithromax and Rocephin for PNA. Abdominal ultrasound showing cholelithiasis with positive sonographic Wen's but without evidence of acute cholecystitis, unchanged minimal central intrahepatic biliary ductal dilation which is unchanged since 03/22/2022 and with normal caliber common bile duct. LFTs were normal. HIDA scan also read as normal. GI was consulted. WBC trended down. She feels better. She is having acid reflux symptoms. She feels ready for discharge. She overall did well and was able to be discharged home on 03/30/22. Case discussed with primary care provider who will follow-up on the adrenal mass and AAA. Status at Discharge Cognitive/behavioral status at discharge: Stable Time Spent with Patient Time attestation: Total time spent providing and/or coordinating discharge services: 33 minutes Time spent: Greater than 30 minutes Exam Narrative: AF 98.2 150/81 90 18 96% ra Gen - NARD Chest - CTA bilaterally, nml RR CV - RRR S1/S2 Abd - Soft, NT/ND, Positive BS Ext - No pedal edema Psych - Nml mood and affect Skin - Warm and dry DS: Data Data Completed and Pending Labs on day of discharge: Labs from last 24 hours 03/30/22 03/30/22 07:35 07:35 WBC 14.4 H RBC 5.07 Hgb 15.9 H Hct 46.2 MCV 91.1 MCH 31.4 MCHC 34.4 RDW 12.2 Plt Count 420 H MPV 10.5 H Immature Gran % (Auto) 0.3 Neut % (Auto) 72.6 Lymph % (Auto) 19.7 [place] % (Auto) 6.2 Eos % (Auto) 0.8 Baso % (Auto) 0.4 Lymph # (Auto) 2.83 [place] # (Auto) 0.9 H Eos # (Auto) 0.1 Baso # (Auto) 0.1 Abs Immat Gran (auto) 0.05 H Absolute Neuts (auto) 10.5 H Absolute Nucleated RBC 0.0 Nucleated RBC % 0.0 Sodium 136 L Potassium 3.1 L Chloride 104 Carbon Dioxide 22 Anion Gap 10 BUN 13 Creatinine 0.50 L Estim Creat Clear Calc 74 Estimated GFR > 60 Glucose 78 Calcium 8.7 Magnesium 1.7 Preliminary micro results at discharge 03/27/22 13:50 Blood Culture - Preliminary
== END 2022-03-30 16:24 | disposition home or self-care (01) ==
LOC: ANHED 09:54 → ANH3MEDSUR 14:53
PROVIDERS: Internal Medicine; Nurse Practitioner; Admitting Provider Internal Medicine; Emergency Provider Emergency Medicine; PCP Internal Medicine; Visit Provider Hospitalist
DX: K80.20 Calculus of gallbladder without cholecystitis without obstruction (principal); I71.43 Infrarenal abdominal aortic aneurysm, without rupture; K83.8 Other specified diseases of biliary tract; J18.9 Pneumonia, unspecified organism; E27.8 Other specified disorders of adrenal gland; E03.9 Hypothyroidism, unspecified; E78.5 Hyperlipidemia, unspecified; F17.210 Nicotine dependence, cigarettes, uncomplicated; D72.829 Elevated white blood cell count, unspecified; E87.6 Hypokalemia; I70.8 Atherosclerosis of other arteries; Z79.899 Other long term (current) drug therapy
CPT/HCPCS: 36415; 74177; 76705; 78227; 80048; 80053; 81001; 83605; 83690; 83735; 84132; 84443; 85025; 87040; 96361; 96366; 96367; 96374; 96375; 96376; 99285; A9270; A9537; C9113; G0378; J0131; J0456; J0696; J1200; J2405; J2765; J2805; J3480; J7030; J7040; Q9967

== ENCOUNTER 2022-05-18 14:24 | Emergency (ER) | payer MEDICARE, SELFPAY ==
[2022-05-18] VITALS (14 sets, daily range): BP systolic 117–157; BP diastolic 59–123; PULSE 64–100; RESP 16–27; TEMP 36.7; O2SAT 99
--- NOTE | ~2022-05-18 | CT_ITS ---
EXAMINATION: CT abdomen pelvis w con DATE: 05/18/2022 17:01 INDICATION: 5 days of constipation and nausea TECHNIQUE: Computed tomography (CT) of the abdomen and pelvis was performed with 100 mL Omnipaque-350 intravenous contrast. Automated exposure control and iterative reconstruction technique were employe d. The dose-length product was 173.87 mGy-cm. COMPARISON: None FINDINGS: Mild discoid atelectasis at the lingula. Heart size is normal. Atherosclerotic coronary artery calcif ic location. No pericardial or pleural effusion. No interval change in either mild intrahepatic bilia ry ductal dilation or of a geographic region of focal hepatic steatosis along the ligament teres. Gal lstone within the normal sized nondilated gallbladder with no wall thickening or pericholecystic infl ammatory stranding to suggest acute cholecystitis. Pancreas, spleen, bilateral kidneys and right adre nal gland is normal. No change in a 3.5 cm left adrenal mass with central calcification. No significa nt change in a 5.3 cm fusiform infrarenal abdominal aortic aneurysm. 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 Bladder, anteverted uterus and bilateral adnexa are unrema rkable. There is moderate colonic diverticulosis with a sigmoid predominance. There is no adjacent i nflammatory change to suggest diverticulitis. Small bowel and appendix are normal with no obstruction . No free intraperitoneal gas or fluid. No pathologically enlarged abdominal or pelvic lymphadenopath y. Lumbar dextroscoliosis with severe spondylosis. IMPRESSION: 1. Cholelithiasis. 2. No significant change in a 5.3 cm fusiform infrarenal abdominal aortic aneurysm. 3. 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 4. Indeterminate 3.5 cm left adrenal mass with central calcific lesion. Would recommend further evalu ation with pre and postcontrast MRI or CT. 5. Diverticulosis. Reviewed, dictated and finalized at location A. CCO SAMPLER IMPRESSION: 1. Cholelithiasis. 2. No significant change in a 5.3 cm fusiform infrarenal abdominal aortic aneur ysm. 3. 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 4. Indeterminate 3.5 cm left adrenal mass with central calcific lesion. Would r ecommend further evaluation with pre and postcontrast MRI or CT. 5. Diverticulosis.
[2022-05-18 15:44] LABS: Basophils Absolute Auto 0.1 K/mm3 (0.0-0.1); Basophils Percent Auto 0.8 % (0.2-1.2); Eosinophils Absolute Auto 0.2 K/mm3 (0-0.3); Eosinophils Percent Auto 1.6 % (0-4.4); Hematocrit 47.3 % (37.0-47.0); Hemoglobin 15.6 g/dL (12.0-15.0); Immature Granulocyte Absolute 0.04 K/mm3 (0.00-0.031); Immature Granulocyte Percent A 0.3 % (0-0.5); Lymphocytes Absolute Auto 3.07 K/mm3 (0.9-3.2); Lymphocytes Percent Auto 22.2 % (18.3-44.2); Mean Corpuscular Volume 93.8 fl (80-100); Mean Platelet Volume 11.7 fl (7.4-10.4); Monocytes Absolute Auto 0.8 K/mm3 (0.1-0.6); Neutrophils Absolute Auto 9.6 K/mm3 (1.3-6.7); Neutrophils Percent Auto 69.1 % (45.5-73.1); Platelet Count Result 346 k/mm3 (150-375); Red Blood Count 5.04 M/mm3 (4.2-5.4); Red Cell Distribution Width 13.3 % (11.5-14.5); White Blood Count 13.9 K/mm3 (4.5-10.0)
[2022-05-18 15:54] LABS: Mucus Urine Heavy /lpf; Squamous Epithelial Cell Urine Moderate /hpf (Few); WBC Urine 0-3 /hpf
[2022-05-18 15:55] LABS: Appearance Urine Clear (Clear); Color Urine Yellow (Yellow); pH Urine 5.5 (5.0-9.0)
[2022-05-18 15:56] LABS: Alanine Aminotransferase 17 U/L (6-35); Albumin Level 4.8 g/dL (3.5-5.1); Alkaline Phosphatase 97 U/L (38-126); Anion Gap 9 mmol/L (8-16); Aspartate Amino Transferase 23 U/L (14-36); Blood Urea Nitrogen 28 mg/dL (7-17); Blood Urine 1+ (Negative); Carbon Dioxide 30 mmol/L (22-30); Chloride 99 mmol/L (98-107); Estimated CRCL calculation 52 ml/min; Estimated Glomerular Filt Rate > 60; Glucose 99 mg/dL (65-110); Glucose Urine UA Negative (Negative); Ketones Urine 2+ mg/dL (Negative); Lipase 29 U/L (23-300); Nitrate Urine Negative (Negative); Potassium 3.6 mmol/L (3.4-5.0); Protein Urine 1+ mg/dL (Negative); Sodium 138 mmol/L (137-145); Specific Grav Ur >= 1.030 (1.001-1.035)
[2022-05-18 15:57] LABS: Add Urine Microscopic? YES; Bilirubin Urine 2+ (Negative); Leukocyte Esterase Ur Negative LEU/UL (Negative)
--- NOTE | 2022-05-18 16:35 | ED.GENADULT ---
HPI - General Adult General Chief complaint: Nausea/Vomiting/Diarrhea Stated complaint: nausea Time Seen by Provider: 05/18/22 16:31 Source: RN notes reviewed History of Present Illness HPI narrative: Patient presents emergency department from home for nausea vomiting. Patient states she has had numerous episodes of nausea vomiting over the past 3 days states she has been unable to keep anything down today. States is associated with abdominal cramping that comes in waves she denies any fevers or chills she denies any chest pain shortness of breath or diarrhea. States that she had similar episode in March and they worked her up for possible gallbladder issues at that time that were Related Data Allergies Allergy/AdvReac Type Severity Reaction Status Date / Time No Known Allergies Allergy Mild Verified 05/18/22 16:51 Review of Systems Review of Systems: Gen.: Denies fevers or chills ENT: Denies congestion Respiratory: Denies shortness of breath or cough CV: Denies chest pain or palpitations GI: See HPI Musculoskeletal: Denies back pain or muscle pain Neuro: Denies numbness, tingling, weakness or focal weakness Skin: Denies rash Except as documented, all other systems reviewed and negative [facility] Past Medical History Medical History Dilated bile duct History of hyperlipidemia History of hypothyroidism Leukocytosis Surgical History Surgical History H/O knee surgery H/O tubal ligation H/O unilateral oophorectomy Family History Family History Father Acute myocardial infarction, Onset Age: 68 Patient's father is Mother Family history of kidney disease Patient's mother is Sibling Hx of CABG Sibling Acute myocardial infarction Social History Social History Social History: Patient continues to smoke 1 pack a cigarettes per day. The patient lives with her who is disabled. She has 2 children. She is retired. Her is a durable power budget controller for healthcare. She denies any marijuana alcohol or illicit drugs. Code status full code. Smoking packs per day: 1 Smoking cigarettes per day: 20.0 Years smoked: 30 Smoking pack-years: 30.00 Smoking status: Current every day smoker Tobacco type: cigarettes Second hand tobacco smoke exposure: No Alcohol intake: never Substance use: never Lack of Transportation: No Lack of Food: Never True Current Housing: I Have Housing Concerned About Future Housing: No Difficulty Paying Gas/Electric Bills: No Difficulty Paying for Meds: No Currently Unemployed: No Education: High School Diploma/GED Difficulty w/ Childcare or Family Care: No Spiritual care concerns: No Exam Narrative: APPEARANCE: No acute distress, nontoxic, resting in bed HEENT: Normocephalic, atraumatic, OMM RESPIRATORY: No respiratory distress, clear to auscultation bilaterally with no rhonchi wheezing or rales CARDIOVASCULAR: RRR s murmur ABDOMINAL: Soft nondistended diffuse tenderness palpation no rebound or guarding MUSCULOSKELETAl: Moves all extremities. No clubbing, cyanosis or edema. NEURO: Awake and alert. Following commands, speech normal, no focal deficits SKIN:: Warm, dry. Normal Color PSYCHIATRIC: Normal affect/mood Course Course Emergency Course: Old records show chronic elevation of white blood cell count Reviewed old records the patient was seen and admitted here in March at that time she had had work-up for gallbladder within normal HIDA scan she also was scheduled to follow-up with vascular surgery for aneurysm as an outpatient. Patient states she is scheduled to see vascular next month she states she has Protonix daily which she has been taking Patient states he is feelin
[2022-05-18] MEDS: ONDANSETRON INJ 4 MG/2 ML VIAL IV PUSH (16:41)
[2022-05-18] MEDS: SODIUM CHLORIDE 0.9% IV 1,000 ML 999 ML IV CONT (16:41)
--- NOTE | 2022-05-18 17:01 | PC.NURSE ---
Patient off unit to CT.
[2022-05-18 17:27] LABS: Influenza A QL RT-PCR Negative (Negative); Influenza B QL RT-PCR Negative (Negative); SARS-CoV-2 RNA PCR Negative
== END 2022-05-18 18:14 | disposition home or self-care (01) ==
PROVIDERS: Emergency Medicine; Emergency Provider Emergency Medicine; PCP Internal Medicine
DX: R11.2 Nausea with vomiting, unspecified (principal); Z20.822 Contact with and (suspected) exposure to COVID-19; E03.9 Hypothyroidism, unspecified
CPT/HCPCS: 36415; 74177; 80053; 81001; 83690; 85025; 87636; 96361; 96374; 99284; J2405; J7030; Q9967

== ENCOUNTER 2022-06-10 14:30 | Outpatient (CLI) | payer MEDICARE, SELFPAY ==
--- NOTE | ~2022-06-10 | MR_ITS ---
EXAMINATION: MR abdomen wo/w con DATE: 06/10/2022 15:32 INDICATION: Left adrenal mass. TECHNIQUE: Magnetic resonance imaging (MRI) of the abdomen was performed without and with 9 mL MultiH ance intravenous contrast. COMPARISON: CT abdomen and pelvis 05/18/2022 FINDINGS: The liver and spleen are normal. There is a gallstone in the gallbladder, which is normal in size. Th e pancreas and right adrenal gland are normal. There is a 3.3 cm mass in left adrenal gland containin g microscopic fat, consistent with an adenoma. There are cysts in the kidneys measuring up to 3 mm on the right. There are no dilated loops of bowel. There is a 5.4 cm fusiform aneurysm of infrarenal ao rta. There is total occlusion of left common iliac artery. There are no pathologically enlarged lymph nodes. There is no free intraperitoneal fluid. IMPRESSION: 1. 3.3 cm left adrenal adenoma. 2. 5.4 cm fusiform aneurysm of infrarenal aorta. 3. Total occlusion of left common iliac artery. Reviewed, dictated and finalized at location A. MANAGER
== END 2022-06-10 14:31 | disposition home or self-care (01) ==
PROVIDERS: PCP Internal Medicine; Visit Provider Internal Medicine
DX: E27.8 Other specified disorders of adrenal gland (principal); D35.02 Benign neoplasm of left adrenal gland; I71.40 Abdominal aortic aneurysm, without rupture, unspecified
CPT/HCPCS: 74183; A9577

== ENCOUNTER 2022-09-21 07:49 | Outpatient (CLI) | payer MEDICARE, SELFPAY ==
[2022-09-21 08:28] LABS: Basophils Absolute Auto 0.1 K/mm3 (0.0-0.1); Basophils Percent Auto 1.1 % (0.2-1.2); Eosinophils Absolute Auto 0.3 K/mm3 (0-0.3); Eosinophils Percent Auto 3.1 % (0-4.4); Hematocrit 45.2 % (37.0-47.0); Hemoglobin 14.9 g/dL (12.0-15.0); Immature Granulocyte Absolute 0.02 K/mm3 (0.00-0.031); Immature Granulocyte Percent A 0.2 % (0-0.5); Lymphocytes Absolute Auto 2.24 K/mm3 (0.9-3.2); Lymphocytes Percent Auto 21.6 % (18.3-44.2); Mean Corpuscular Hemoglobin 31.3 pg (26-34); Mean Platelet Volume 10.6 fl (7.4-10.4); Monocytes Absolute Auto 0.5 K/mm3 (0.1-0.6); Monocytes Percent Auto 5.2 % (2.6-8.5); Neutrophils Absolute Auto 7.2 K/mm3 (1.3-6.7); Neutrophils Percent Auto 68.8 % (45.5-73.1); Platelet Count Result 340 k/mm3 (150-375); Red Blood Count 4.76 M/mm3 (4.2-5.4); Red Cell Distribution Width 13.8 % (11.5-14.5); White Blood Count 10.4 K/mm3 (4.5-10.0)
[2022-09-21 08:35] LABS: Alanine Aminotransferase 15 U/L (6-35); Albumin Level 4.3 g/dL (3.5-5.1); Alkaline Phosphatase 85 U/L (38-126); Anion Gap 6 mmol/L (8-16); Aspartate Amino Transferase 23 U/L (14-36); Bilirubin,Total 0.5 mg/dL (0.2-1.3); Blood Urea Nitrogen 12 mg/dL (7-17); Calcium 9.3 mg/dL (8.4-10.2); Carbon Dioxide 31 mmol/L (22-30); Chloride 106 mmol/L (98-107); Cholesterol 159 mg/dL (0-200); Estimated Glomerular Filt Rate > 60; Glucose 104 mg/dL (65-110); HDL Direct 48 mg/dL; Potassium 3.8 mmol/L (3.4-5.0); Sodium 143 mmol/L (137-145); Triglycerides 89 mg/dL (<150)
[2022-09-21 08:47] LABS: LDL Cholesterol Direct 95 mg/dL
[2022-09-21 09:06] LABS: Thyroid Stimulating Hormone 0.467 uIU/mL (0.465-4.680)
[2022-09-21 09:09] LABS: Free T4 Free Thyroxine 1.56 ng/mL (0.78-2.19)
[2022-09-21 09:41] LABS: Folic Acid 17.8 ng/mL (2.76->20)
[2022-09-21 10:03] LABS: Erythrocyte Sedimentation Rate 16 mm/hr (0-20)
== END 2022-09-21 07:50 | disposition home or self-care (01) ==
PROVIDERS: PCP Internal Medicine; Visit Provider Internal Medicine
DX: R53.83 Other fatigue (principal); E78.5 Hyperlipidemia, unspecified; E03.9 Hypothyroidism, unspecified; D72.829 Elevated white blood cell count, unspecified
CPT/HCPCS: 36415; 80053; 80061; 82607; 82746; 84439; 84443; 85025; 85652

== ENCOUNTER 2023-11-07 20:12 | Emergency (ER) | payer MEDICARE, SELFPAY ==
[2023-11-07] VITALS (9 sets, daily range): BP systolic 159–167; BP diastolic 70–90; PULSE 73–88; RESP 15–22; TEMP 36.6; O2SAT 93–96
--- NOTE | ~2023-11-07 | CT_ITS ---
EXAMINATION: CTA chest abdomen pelvis DATE: 11/07/2023 22:59 INDICATION: chest pain, nausea . TECHNIQUE: Computed tomography (CT) of the chest, abdomen, and pelvis was performed with 90 mL Omnipa que-350 intravenous contrast in the arterial phase. Automated exposure control and iterative reconstr uction technique were employed. The dose-length product was 254.42 mGy-cm. COMPARISON: MR abdomen 06/10/2022; CT abdomen pelvis 05/18/2022 FINDINGS: CHEST: Thoracic aorta: No significant dilation. No dissection. Lung parenchyma and airways: Right upper lobe low-density consolidation with incomplete air bronchogr ams. Innumerable, variable sized pulmonary nodules. Thoracic inlet, axillae and chest wall: No thyroid or soft tissue mass. No axillary lymphadenopathy. Mediastinum: Ill-defined soft tissue density around the right hilum, with conglomerate enlarged left hilar and mediastinal lymph nodes and mild narrowing of the traversing bronchi and pulmonary arteries . Although not optimized as a CTPA, the pulmonary arteries are well-opacified and there are no pulmon ronald emboli. Heart and pericardium: Normal heart size. No pericardial effusion. Coronary artery calcifications: Mild. Pleura: No effusion or mass. Thoracic bones: Numerous lytic bone lesions at multiple levels in the thoracic spine as well as the l eft scapula and the left fourth rib. ABDOMEN/PELVIS: Liver: Normal. Biliary/Gallbladder: Cholelithiasis. No bile duct dilation. Pancreas: No mass or duct dilation. Spleen: Normal. Adrenals:Heterogeneous, partially calcified 3.4 cm left adrenal mass, stable since prior exam, there is a diagnosed by MRI as an adenoma. Kidneys: No suspicious mass, obstructing stone, or hydronephrosis. GI tract: No small or large bowel dilation. Normal appendix. Diverticulosis without diverticulitis. Mesentery/Peritoneum: No ascites, mass, or free air. Retroperitoneum: Large fusiform infrarenal abdominal aortic aneurysm, 6.7 cm in greatest transverse d imension, involving an 8.7 cm length of the aorta. Intramural thrombus. Extensive atherosclerotic javier cifications. Patent celiac, SMA, and left renal artery. Severe stenoses of the small right renal john ry and a smaller accessory right renal artery. 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 Pelvis: Pelvic organs are within normal limits Soft Tissues: Soft tissues and body wall unremarkable. Abdominopelvic bones: Multiple lytic lesions in the lumbar spine and pelvis IMPRESSION: Ill-defined right hilar mass, likely representing primary carcinoma, with postobstructive pneumonia i n the right upper lobe, mediastinal metastases, extensive pulmonary metastases, and multiple lytic os seous metastases in the chest, abdomen, and pelvis. 6.7 cm fusiform infrarenal abdominal aortic aneurysm demonstrating interval growth since the prior st udy. Recommend vascular consultation. 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 Reviewed, dictated and finalized at location K. IMPRESSION: Ill-defined right hilar mass, likely representing primary carcinoma, with posto bstructive pneumonia in the right upper lobe, mediastinal metastases, extensive pulmonary metastases, and multiple lytic osseous metastases in the chest, abdo men, and pelvis. 6.7 cm fusiform infrarenal abdominal aortic aneurysm demonstrating interval enio wth since the prior study. Recommend vascular consultation. 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
[2023-11-07 21:12] LABS: Hematocrit 45.3 % (37.0-47.0); Hemoglobin 15.3 g/dL (12.0-15.0); Mean Corpuscular HGB Conc 33.8 g/dl (32-36); Mean Corpuscular Hemoglobin 31.3 pg (26-34); Mean Corpuscular Volume 92.6 fl (80-100); Mean Platelet Volume 10.3 fl (7.4-10.4); Platelet Count Result 397 k/mm3 (150-375); Red Blood Count 4.89 M/mm3 (4.2-5.4); Red Cell Distribution Width 14.4 % (11.5-14.5); White Blood Count 20.6 K/mm3 (4.5-10.0)
[2023-11-07 21:25] LABS: Alanine Aminotransferase 13 U/L (6-35); Albumin Level 4.8 g/dL (3.5-5.1); Alkaline Phosphatase 123 U/L (38-126); Anion Gap 10 mmol/L (4-12); Aspartate Amino Transferase 28 U/L (14-36); Blood Urea Nitrogen 36 mg/dL (7-17); Carbon Dioxide 27 mmol/L (22-30); Chloride 107 mmol/L (98-107); Estimated CRCL calculation 30 ml/min; Estimated Glomerular Filt Rate 55; Glucose 163 mg/dL (65-110); Lipase 21 U/L (23-300); Potassium 3.6 mmol/L (3.4-5.0); Sodium 144 mmol/L (137-145)
[2023-11-07 21:41] LABS: Lymphocytes Absolute Manual 1.64 K/mm3 (1.1-4.5); Monocytes Absolute Manual 1.44 K/mm3 (0.1-0.90); Monocytes Percent Manual 7 % (3-9); Neutrophils Percent Manual 85 % (46-73); Platelet Estimate Increased (Adequate); Schistocytes None Seen; Total Cells Counted 100
--- NOTE | 2023-11-07 21:45 | ED.NAVMDI ---
HPI - Nausea/Vomiting/Diarrhea General Chief complaint: Nausea/Vomiting/Diarrhea Stated complaint: nausea and vomiting Time Seen by Provider: 11/07/23 21:33 History of Present Illness HPI Narrative: Patient is a 68-year-old female active smoker, history of GERD, AAA here with nausea and pain behind her shoulder blades bilaterally for the last 3 days. She notes that 3 days ago she began having pain behind bilateral shoulder blades. She then began having significant nausea. She states that she had similar symptoms about 4 years ago, was diagnosed with GERD at that time. She states this feels similar. She was diagnosed with a AAA and advised to follow up with vascular as well as GI after that hospitalization, she has followed up with neither. She does follow with her primary care doctor annually and is due in about 1 month to see her doctor. She acknowledges significant nausea and has had several episodes of vomiting. She has been unable to tolerate p.o. over the last 3 days and has had minimal intake. She has had a cough which is intermittently productive of white sputum. She is an active smoker. She denies any chest pain. She denies any fever, chills, urinary symptoms, sick contacts. Related Data Allergies Allergy/AdvReac Type Severity Reaction Status Date / Time No Known Allergies Allergy Mild Verified 11/07/23 20:28 Review of Systems Review of Systems: All systems reviewed & are unremarkable except as noted in HPI and below PMFSH Past Medical History Medical History Dilated bile duct History of hyperlipidemia History of hypothyroidism Leukocytosis Surgical History Surgical History H/O knee surgery H/O tubal ligation H/O unilateral oophorectomy Family History Family History Father Acute myocardial infarction, Onset Age: 68 Patient's father is Mother Family history of kidney disease Patient's mother is Sibling Hx of CABG Sibling Acute myocardial infarction Social History Social History Social History: Patient continues to smoke 1 pack a cigarettes per day. The patient lives with her who is disabled. She has 2 children. She is retired. Her is a durable power hand trucker for healthcare. She denies any marijuana alcohol or illicit drugs. Code status full code. Smoking packs per day: 1 Smoking cigarettes per day: 20.0 Years smoked: 30 Smoking pack-years: 30.00 Smoking status: Current every day smoker Tobacco type: cigarettes Second hand tobacco smoke exposure: No Alcohol intake: never Substance use: never Lack of Transportation: No Lack of Food: Never True Current Housing: I Have Housing Concerned About Future Housing: No Difficulty Paying Gas/Electric Bills: No Difficulty Paying for Meds: No Currently Unemployed: No Education: High School Diploma/GED Difficulty w/ Childcare or Family Care: No Living arrangements: with family Occupation/Education: retired Spiritual care concerns: No Exam Narrative: GENERAL: Well-appearing, well-nourished, and in no acute distress. HEAD: Normocephalic, atraumatic. EYES: PERRLA and EOMI. ENT: Nares clear. Mucous membranes moist. NECK: Supple. CHEST: Course breath sounds at bilateral bases with faint wheeze present. No respiratory distress. HEART: Regular rate and rhythm. Strong, equal bilateral radial pulses ABDOMEN: Soft, nontender, nondistended. No rebound or guarding. EXTREMITIES: Normal range of motion. No edema. SKIN: Warm, dry, no rash. NEURO: No focal deficits. Alert and oriented x3. PSYCH: Normal mood and affect. Course Course Emergency Course: Chart review performed. Patient here with concerns for GERD flare up. Triage
--- NOTE | 2023-11-07 21:48 | ECG_ITS ---
Test Date: 2023-11-07 22:18:38 Measurements Intervals [place] Rate: 72 P: 82 ME: 117 QRS: 75 QRSD: 93 T: 61 QT: 407 QTc: 447 Interpretive Statements SINUS RHYTHM WITH SINUS ARRHYTHMIA WITH SHORT ME INTERVAL POSSIBLE LEFT ATRIAL ENLARGEMENT INCOMPLETE RIGHT BUNDLE BRANCH BLOCK T WAVE ABNORMALITY IN ANTERIOR LEADS- CONSIDER ISCHEMIA BASELINE ARTIFACT- I, II, AVR, AVL, AVF, V1-V5 ABNORMAL ECG No previous ECG available for comparison Electronically Signed On 11-08-2023 06:25:43 CDT by Nithin Wharotn D.O.
[2023-11-07] MEDS: ONDANSETRON INJ 4 MG/2 ML VIAL IV PUSH ×2 (21:59→22:47)
[2023-11-07] MEDS: PANTOPRAZOLE SODIUM IV 40 MG VIAL IV PUSH (21:59)
[2023-11-07 22:15] LABS: Troponin I 0.022 ng/mL (0.000-0.034)
[2023-11-07] MEDS: LACTATED RINGERS 1,000 ML 999 ML IV CONT (22:46)
[2023-11-07 23:31] LABS: Influenza A QL RT-PCR Negative (Negative); Influenza B QL RT-PCR Negative (Negative); RSV RNA, RT-PCR Negative (Negative); SARS-CoV-2 RNA PCR Negative (Negative)
[2023-11-07 23:32] LABS: Lactic Acid Reflex 1.7 mmol/L (0.7-2.0)
[2023-11-07 23:53] LABS: Appearance Urine Clear (Clear); Bacteria Urine None Seen /hpf; Bilirubin Urine Negative (Negative); Blood Urine Negative (Negative); Color Urine Yellow (Yellow); Glucose Urine UA Negative (Negative); Ketones Urine Trace mg/dL (Negative); Leukocyte Esterase Ur Negative LEU/UL (Negative); Need Manual Microscopic Reviewed; Nitrate Urine Negative (Negative); Protein Urine 1+ mg/dL (Negative); RBC Urine 0-2 /hpf (0-2); Squamous Epithelial Cell Urine None Seen /hpf (Few); WBC Urine 0-5 /hpf (0-3)
[2023-11-07 23:55] LABS: Add Urine Microscopic? YES; Specific Grav Ur 1.053 (1.001-1.035)
[2023-11-08] VITALS (27 sets, daily range): BP systolic 135–164; BP diastolic 62–75; PULSE 58–101; RESP 15–25; TEMP 36.9; O2SAT 92–96
[2023-11-08] MEDS: METOCLOPRAMIDE HCL INJ 10 MG/2 ML VIAL IV PUSH (00:02)
[2023-11-08] MEDS: diphenhydrAMINE HCl INJ 50 MG/ML VIAL 25 MG IV PUSH (00:02)
[2023-11-08] MEDS: CEFEPIME 2 GM/NS 50 ML 2 GM/50 ML BAG IVPB ×2 (01:38→08:32)
[2023-11-08] MEDS: LACTATED RINGERS 1,000 ML 999 ML IV CONT (02:28)
[2023-11-08] MEDS: VANCOMYCIN 1,000 MG/NS 250 ML 1,000 MG/250 ML BAG 250 MG IVPB (02:28)
--- NOTE | 2023-11-08 04:05 | ECG_ITS ---
Test Date: 2023-11-08 05:04:49 Measurements Intervals [place] Rate: 77 P: 81 MA: 135 QRS: 74 QRSD: 93 T: 68 QT: 396 QTc: 449 Interpretive Statements SINUS RHYTHM POSSIBLE LEFT ATRIAL ENLARGEMENT INCOMPLETE RIGHT BUNDLE BRANCH BLOCK MODERATE T-WAVE ABNORMALITY, CONSIDER ANTERIOR ISCHEMIA BASELINE ARTIFACT- I, II, III, AVR, AVL ABNORMAL ECG Compared to ECG 11/07/2023 22:18:38 NO SIGNIFICANT CHANGE Electronically Signed On 11-08-2023 06:30:45 CDT by Nithin Wharton D.O.
[2023-11-08] MEDS: ONDANSETRON INJ 4 MG/2 ML VIAL IV PUSH ×2 (04:28→08:30)
[2023-11-08] MEDS: LACTATED RINGERS 1,000 ML 125 ML IV CONT (04:28)
[2023-11-08 05:38] LABS: Troponin I 0.023 ng/mL (0.000-0.034)
[2023-11-08 06:24] LABS: MRSA (PCR) NOT DETECTED (NOT DETECTE)
[2023-11-08 08:22] LABS: Basophils Absolute Auto 0.1 K/mm3 (0.0-0.1); Basophils Percent Auto 0.4 % (0.2-1.2); Eosinophils Absolute Auto 0.1 K/mm3 (0-0.3); Eosinophils Percent Auto 0.5 % (0-4.4); Hematocrit 40.7 % (37.0-47.0); Hemoglobin 13.5 g/dL (12.0-15.0); Immature Granulocyte Absolute 0.14 K/mm3 (0.00-0.031); Immature Granulocyte Percent A 0.7 % (0-0.5); Lymphocytes Absolute Auto 1.39 K/mm3 (0.9-3.2); Lymphocytes Percent Auto 7.3 % (18.3-44.2); Mean Corpuscular HGB Conc 33.2 g/dl (32-36); Mean Corpuscular Volume 93.3 fl (80-100); Mean Platelet Volume 10.4 fl (7.4-10.4); Monocytes Percent Auto 5.3 % (2.6-8.5); Neutrophils Absolute Auto 16.4 K/mm3 (1.3-6.7); Neutrophils Percent Auto 85.8 % (45.5-73.1); Platelet Count Result 306 k/mm3 (150-375); Red Blood Count 4.36 M/mm3 (4.2-5.4); White Blood Count 19.1 K/mm3 (4.5-10.0)
[2023-11-08 08:34] LABS: Alanine Aminotransferase 11 U/L (6-35); Albumin Level 3.8 g/dL (3.5-5.1); Alkaline Phosphatase 95 U/L (38-126); Anion Gap 4 mmol/L (4-12); Aspartate Amino Transferase 24 U/L (14-36); Bilirubin,Total 0.9 mg/dL (0.2-1.3); Blood Urea Nitrogen 24 mg/dL (7-17); Carbon Dioxide 29 mmol/L (22-30); Chloride 108 mmol/L (98-107); Estimated CRCL calculation 42 ml/min; Estimated Glomerular Filt Rate > 60; Glucose 110 mg/dL (65-110); Potassium 3.5 mmol/L (3.4-5.0); Sodium 141 mmol/L (137-145)
== END 2023-11-08 10:45 | disposition short-term general hospital (02) ==
PROVIDERS: Emergency Provider Student in an Organized Health Care Education/Training Program; PCP Internal Medicine
DX: J18.9 Pneumonia, unspecified organism (principal); N17.9 Acute kidney failure, unspecified; R11.2 Nausea with vomiting, unspecified; R91.8 Other nonspecific abnormal finding of lung field; Z20.822 Contact with and (suspected) exposure to COVID-19; I71.43 Infrarenal abdominal aortic aneurysm, without rupture; E78.5 Hyperlipidemia, unspecified; E03.9 Hypothyroidism, unspecified; F17.210 Nicotine dependence, cigarettes, uncomplicated; Z90.721 Acquired absence of ovaries, unilateral; Z79.899 Other long term (current) drug therapy; I45.10 Unspecified right bundle-branch block; R94.31 Abnormal electrocardiogram [ECG] [EKG]
CPT/HCPCS: 36415; 71275; 74174; 80053; 81001; 83605; 83690; 84484; 85025; 87040; 87637; 87641; 93005; 96361; 96365; 96366; 96367; 96375; 96376; 99285; J0692; J1200; J2405; J2470; J2765; J3370; J7120; Q9967

== ENCOUNTER 2023-11-30 08:20 | Outpatient (CLI) | payer MEDICARE, SELFPAY ==
[2023-11-30 09:12] LABS: Alanine Aminotransferase 16 U/L (6-35); Albumin Level 3.8 g/dL (3.5-5.1); Alkaline Phosphatase 106 U/L (38-126); Anion Gap 6 mmol/L (4-12); Aspartate Amino Transferase 19 U/L (14-36); Bilirubin,Total 0.5 mg/dL (0.2-1.3); Blood Urea Nitrogen 9 mg/dL (7-17); Carbon Dioxide 33 mmol/L (22-30); Chloride 101 mmol/L (98-107); Estimated Glomerular Filt Rate > 60; Glucose 110 mg/dL (65-110); Potassium 3.8 mmol/L (3.4-5.0); Sodium 140 mmol/L (137-145)
== END 2023-11-30 08:21 | disposition home or self-care (01) ==
LOC: ANHLAB 08:22
PROVIDERS: PCP Internal Medicine; Visit Provider Internal Medicine
DX: E78.5 Hyperlipidemia, unspecified (principal); R93.6 Abnormal findings on diagnostic imaging of limbs; C79.9 Secondary malignant neoplasm of unspecified site; E03.9 Hypothyroidism, unspecified
CPT/HCPCS: 36415; 80053; 84443

== ENCOUNTER 2023-12-18 05:15 | Emergency (ER) | payer MEDICARE, SELFPAY ==
[2023-12-18 05:16] VITALS: BP 126/80; PULSE 90; RESP 17; TEMP 36.3; O2SAT 98
[2023-12-18] MEDS: METOCLOPRAMIDE HCL INJ 10 MG/2 ML VIAL IV PUSH (05:41)
[2023-12-18] MEDS: diphenhydrAMINE HCl INJ 50 MG/ML VIAL 25 MG IV PUSH (05:41)
[2023-12-18 05:50] LABS: Basophils Absolute Auto 0.1 K/mm3 (0.0-0.1); Basophils Percent Auto 0.5 % (0.2-1.2); Eosinophils Percent Auto 0.1 % (0-4.4); Hematocrit 44.3 % (37.0-47.0); Hemoglobin 15.3 g/dL (12.0-15.0); Immature Granulocyte Absolute 0.09 K/mm3 (0.00-0.031); Immature Granulocyte Percent A 0.6 % (0-0.5); Lymphocytes Absolute Auto 1.01 K/mm3 (0.9-3.2); Lymphocytes Percent Auto 6.8 % (18.3-44.2); Mean Corpuscular HGB Conc 34.5 g/dl (32-36); Mean Corpuscular Hemoglobin 31.6 pg (26-34); Mean Corpuscular Volume 91.5 fl (80-100); Mean Platelet Volume 10.4 fl (7.4-10.4); Monocytes Percent Auto 6.5 % (2.6-8.5); Neutrophils Absolute Auto 12.7 K/mm3 (1.3-6.7); Neutrophils Percent Auto 85.5 % (45.5-73.1); Platelet Count Result 347 k/mm3 (150-375); Red Blood Count 4.84 M/mm3 (4.2-5.4); Red Cell Distribution Width 14.7 % (11.5-14.5); White Blood Count 14.8 K/mm3 (4.5-10.0)
--- NOTE | 2023-12-18 05:52 | ED.NAVMDI ---
HPI - Nausea/Vomiting/Diarrhea General Chief complaint: Nausea/Vomiting/Diarrhea <Neisha Andersen MD - Last Filed: 12/18/23 07:17> Stated complaint: nausea, bone & lung cancer <Neisha Andersen MD - Last Filed: 12/18/23 07:17> Time Seen by Provider: 12/18/23 05:24 <Neisha Andersen MD - Last Filed: 12/18/23 07:17> History of Present Illness HPI Narrative: Patient with history of diagnosed lung and bone cancer on oral chemotherapy presents with severe nausea that has been worsening over the last few days, she has tried taking her home medications without much improvement, she is not throwing up and is still able to keep things down but she feels extremely nauseous and uncomfortable. No pain <Neisha Andersen MD - Last Filed: 12/18/23 07:17> Related Data Home medications: Home Medications Medication Instructions Recorded Confirmed folic acid 1 mg tablet 1 mg PO DAILY 11/30/23 11/30/23 olanzapine 2.5 mg tablet 2.5 mg PO DAILY 11/30/23 11/30/23 ondansetron HCl 8 mg tablet 8 mg PO Q8H 11/30/23 11/30/23 prochlorperazine maleate 5 mg 5 mg PO Q8H PRN 11/30/23 11/30/23 tablet tramadol 50 mg tablet 50 mg PO Q6H PRN 11/30/23 11/30/23 <Neisha Andersen MD - Last Filed: 12/18/23 07:17> Allergies/Adverse reactions: Allergies Allergy/AdvReac Type Severity Reaction Status Date / Time No Known Allergies Allergy Mild Verified 11/30/23 07:51 <Neisha Andersen MD - Last Filed: 12/18/23 07:17> Review of Systems Review of Systems: All systems reviewed & are unremarkable except as noted in HPI and below <Neisha Andersen MD - Last Filed: 12/18/23 07:17> PMFSH Past Medical History Medical History: Medical History Dilated bile duct History of hyperlipidemia History of hypothyroidism Leukocytosis <Neisha Andersen MD - Last Filed: 12/18/23 07:17> Surgical History Surgical History: Surgical History H/O knee surgery H/O tubal ligation H/O unilateral oophorectomy <Neisha Andersen MD - Last Filed: 12/18/23 07:17> Family History Family History: Family History Father Acute myocardial infarction, Onset Age: 68 Patient's father is Mother Family history of kidney disease Patient's mother is Sibling Hx of CABG Sibling Acute myocardial infarction <Neisha Andersen MD - Last Filed: 12/18/23 07:17> Social History Social History: Social History Social History: Patient continues to smoke 1 pack a cigarettes per day. The patient lives with her who is disabled. She has 2 children. She is retired. Her is a durable power contract attorney for healthcare. She denies any marijuana alcohol or illicit drugs. Code status full code. Smoking packs per day: 1 Smoking cigarettes per day: 20.0 Years smoked: 30 Smoking pack-years: 30.00 Smoking status: Current every day smoker Tobacco type: cigarettes Second hand tobacco smoke exposure: No Alcohol intake: never Substance use: never Lack of Transportation: No Lack of Food: Never True Current Housing: I Have Housing Concerned About Future Housing: No Difficulty Paying Gas/Electric Bills: No Difficulty Paying for Meds: No Currently Unemployed: No Education: High School Diploma/GED Difficulty w/ Childcare or Family Care: No Living arrangements: with family Occupation/Education: retired Spiritual care concerns: No <Neisha Andersen MD - Last Filed: 12/18/23 07:17> Exam Narrative: EXAMINATION OF ORGAN SYSTEMS/BODY AREAS: Constitutional: Vital signs per nursing GENERAL: Appears uncomfortable HEAD: Normal with no signs of head trauma. Temporal wasting EYES: EOMI, conjunctiva normal ENT: Hearing grossly intact LUNGS: Nonlabored breathing. HEART: [Regular rate
--- NOTE | 2023-12-18 05:59 | ECG_ITS ---
Test Date: 2023-12-18 06:40:36 Measurements Intervals [place] Rate: 68 P: 83 TN: 133 QRS: 81 QRSD: 88 T: 77 QT: 427 QTc: 457 Interpretive Statements SINUS RHYTHM POSSIBLE RIGHT VENTRICULAR CONDUCTION DELAY [RSR (QR) IN V1/V2] ST DEVIATION AND MODERATE T-WAVE ABNORMALITY, CONSIDER ANTERIOR ISCHEMIA [-0.1+ mV T-WAVE IN V3/V4] Compared to ECG 11/08/2023 05:04:49 Incomplete right bundle-branch block no longer present T-wave abnormality still present Possible ischemia still present Electronically Signed On 12-18-2023 13:47:12 CDT by Keaton Alvarenga M.D.
[2023-12-18 06:10] LABS: Alanine Aminotransferase 12 U/L (6-35); Alkaline Phosphatase 127 U/L (38-126); Anion Gap 7 mmol/L (4-12); Aspartate Amino Transferase 26 U/L (14-36); Bilirubin,Total 0.7 mg/dL (0.2-1.3); Blood Urea Nitrogen 18 mg/dL (7-17); Carbon Dioxide 33 mmol/L (22-30); Chloride 96 mmol/L (98-107); Estimated CRCL calculation 28 ml/min; Estimated Glomerular Filt Rate > 60; Glucose 136 mg/dL (65-110); Lipase 55 U/L (23-300); Potassium 3.6 mmol/L (3.4-5.0); Sodium 136 mmol/L (137-145)
[2023-12-18] MEDS: LACTATED RINGERS 1,000 ML 999 ML IV CONT (06:36)
[2023-12-18 06:57] VITALS: BP 129/72; PULSE 67; RESP 18; O2SAT 99
[2023-12-18] MEDS: HALOPERIDOL LACTATE 5 MG/ML VIAL 2.5 MG IV PUSH (07:31)
[2023-12-18 08:26] LABS: Add Urine Microscopic? YES; Appearance Urine Cloudy (Clear); Bacteria Urine None Seen /hpf; Bilirubin Urine Negative (Negative); Blood Urine Negative (Negative); Calcium Oxalate Crystals Urine Present /hpf; Color Urine Dark Yellow (Yellow); Glucose Urine UA Negative (Negative); Ketones Urine Trace mg/dL (Negative); Leukocyte Esterase Ur Negative LEU/UL (Negative); Need Manual Microscopic Reviewed; Nitrate Urine Negative (Negative); Protein Urine 1+ mg/dL (Negative); Specific Grav Ur 1.019 (1.001-1.035); Squamous Epithelial Cell Urine Few /hpf (Few); WBC Urine 0-5 /hpf (0-3)
[2023-12-18 08:32] VITALS: BP 146/75; PULSE 61; RESP 18; O2SAT 99
[2023-12-18] MEDS: PROMETHAZINE HCL 25 MG/ML AMPUL 12.5 MG IV PUSH (08:49)
[2023-12-18 09:42] VITALS: BP 140/78; PULSE 67; RESP 20; O2SAT 99
== END 2023-12-18 09:44 | disposition home or self-care (01) ==
PROVIDERS: Emergency Medicine; Emergency Provider Student in an Organized Health Care Education/Training Program; PCP Internal Medicine
DX: R11.0 Nausea (principal); C34.90 Malignant neoplasm of unspecified part of unspecified bronchus or lung; C79.51 Secondary malignant neoplasm of bone; E78.5 Hyperlipidemia, unspecified; E03.9 Hypothyroidism, unspecified; Z90.721 Acquired absence of ovaries, unilateral; F17.210 Nicotine dependence, cigarettes, uncomplicated; Z79.60 Long term (current) use of unspecified immunomodulators and immunosuppressants; R94.31 Abnormal electrocardiogram [ECG] [EKG]
CPT/HCPCS: 36415; 80053; 81001; 83690; 85025; 93005; 96361; 96374; 96375; 99284; J1200; J1630; J2550; J2765; J7120

== ENCOUNTER 2024-02-14 07:40 | Emergency (ER) | payer MEDICARE, SELFPAY ==
[2024-02-14] VITALS (8 sets, daily range): BP systolic 132–168; BP diastolic 71–96; PULSE 79–96; RESP 16–25; TEMP 36.4; O2SAT 95–100
[2024-02-14 08:16] LABS: Albumin Level 5.1 g/dL (3.5-5.1); Alkaline Phosphatase 145 U/L (38-126); Anion Gap 21 mmol/L (4-12); Aspartate Amino Transferase 26 U/L (14-36); Bilirubin,Total 1.1 mg/dL (0.2-1.3); Blood Urea Nitrogen 47 mg/dL (7-17); Calcium 9.8 mg/dL (8.4-10.2); Carbon Dioxide 21 mmol/L (22-30); Chloride 100 mmol/L (98-107); Estimated CRCL calculation 10 ml/min; Estimated Glomerular Filt Rate 19; Glucose 194 mg/dL (65-110); Lipase 24 U/L (23-300); Potassium 3.6 mmol/L (3.4-5.0); Sodium 142 mmol/L (137-145)
--- NOTE | 2024-02-14 08:18 | ED.NAVMDI ---
HPI - Nausea/Vomiting/Diarrhea General Chief complaint: Nausea/Vomiting/Diarrhea Stated complaint: nausea and vomiting Time Seen by Provider: 02/14/24 08:14 History of Present Illness HPI Narrative: Pt presents with nausea dn vomiting frequently for the last couple of days. Pt is not able to keep anything down. Pt has history of Stage 4 Lung CA and is on chemo but has never had vomiting with it only mild nausea. Pt denies diarrhea or any sick contacts. Pt denies abdominal pain or fever. Related Data Home Medications Medication Instructions Recorded Confirmed folic acid 1 mg tablet 1 mg PO DAILY 11/30/23 11/30/23 olanzapine 2.5 mg tablet 2.5 mg PO DAILY 11/30/23 11/30/23 ondansetron HCl 8 mg tablet 8 mg PO Q8H 11/30/23 11/30/23 prochlorperazine maleate 5 mg 5 mg PO Q8H PRN 11/30/23 11/30/23 tablet tramadol 50 mg tablet 50 mg PO Q6H PRN 11/30/23 11/30/23 Allergies Allergy/AdvReac Type Severity Reaction Status Date / Time No Known Allergies Allergy Mild Verified 02/14/24 10:09 Review of Systems Review of Systems: All systems reviewed & are unremarkable except as noted in HPI and below PMFSH Past Medical History Medical History Dilated bile duct History of hyperlipidemia History of hypothyroidism Leukocytosis Surgical History Surgical History H/O knee surgery H/O tubal ligation H/O unilateral oophorectomy Family History Family History Father Acute myocardial infarction, Onset Age: 68 Patient's father is Mother Family history of kidney disease Patient's mother is Sibling Hx of CABG Sibling Acute myocardial infarction Social History Social History Social History: Patient continues to smoke 1 pack a cigarettes per day. The patient lives with her who is disabled. She has 2 children. She is retired. Her is a durable power commercial real estate attorney for healthcare. She denies any marijuana alcohol or illicit drugs. Code status full code. Smoking packs per day: 1 Smoking cigarettes per day: 20.0 Years smoked: 30 Smoking pack-years: 30.00 Smoking status: Current every day smoker Tobacco type: cigarettes Second hand tobacco smoke exposure: No Alcohol intake: never Substance use: never Lack of Transportation: No Lack of Food: Never True Current Housing: I Have Housing Concerned About Future Housing: No Difficulty Paying Gas/Electric Bills: No Difficulty Paying for Meds: No Currently Unemployed: No Education: High School Diploma/GED Difficulty w/ Childcare or Family Care: No Living arrangements: with family Occupation/Education: retired Spiritual care concerns: No Exam Const: Nutritional Appearance: thin Orientation/consciousness: patient oriented x3 Limitations: no limitations HENMT: Mouth: Yes dry mucous membranes Throat: posterior oropharynx normal Eyes: Conjunctivae: conjunctivae normal Cornea: corneas normal EOM: EOMs intact bilaterally Neck: Neck: normal visual inspection Chest: Chest palpation & inspection: normal inspection of the chest Resp: Effort & Inspection: normal respiratory effort Auscultation: clear to auscultation bilaterally Cardio: Rate: regular rate Rhythm: regular rhythm GI: GI Palp: Yes Soft to palpation and No Tenderness to palpation present (GI) Auscultation: normal bowel sounds Skin: General skin exam: normal color Wounds: no wounds Neuro: General: patient oriented x3, moves all extremities, no meningeal signs and no focal motor deficits Cranial nerves: Yes Nystagmus not present Speech: normal speech Extrem: General: normal to inspection and no clubbing, cyanosis or edema Psych: Mental Status: mental status grossly normal Affect: normal affect Attitu
[2024-02-14 08:21] LABS: Alanine Aminotransferase 22 U/L (6-35)
[2024-02-14 08:26] LABS: Basophils Absolute Auto 0.1 K/mm3 (0.0-0.1); Basophils Percent Auto 0.3 % (0.2-1.2); Hematocrit 49.6 % (37.0-47.0); Hemoglobin 16.2 g/dL (12.0-15.0); Immature Granulocyte Absolute 0.17 K/mm3 (0.00-0.031); Immature Granulocyte Percent A 0.7 % (0-0.5); Lymphocytes Absolute Auto 1.07 K/mm3 (0.9-3.2); Lymphocytes Percent Auto 4.5 % (18.3-44.2); Mean Corpuscular HGB Conc 32.7 g/dl (32-36); Mean Corpuscular Hemoglobin 31.3 pg (26-34); Mean Corpuscular Volume 95.8 fl (80-100); Mean Platelet Volume 10.6 fl (7.4-10.4); Monocytes Absolute Auto 0.6 K/mm3 (0.1-0.6); Monocytes Percent Auto 2.7 % (2.6-8.5); Neutrophils Absolute Auto 21.7 K/mm3 (1.3-6.7); Neutrophils Percent Auto 91.8 % (45.5-73.1); Platelet Count Result 462 k/mm3 (150-375); Red Blood Count 5.18 M/mm3 (4.2-5.4); Red Cell Distribution Width 14.6 % (11.5-14.5); White Blood Count 23.6 K/mm3 (4.5-10.0)
[2024-02-14] MEDS: SODIUM CHLORIDE 0.9% IV 1,000 ML 999 ML IV CONT ×2 (08:53→10:07)
[2024-02-14] MEDS: ONDANSETRON INJ 4 MG/2 ML VIAL IV PUSH (08:53)
[2024-02-14] MEDS: PROCHLORPERAZINE EDISYLATE 10 MG/2 ML VIAL IV PUSH (10:07)
[2024-02-14 11:39] LABS: Add Urine Microscopic? YES; Appearance Urine Cloudy (Clear); Bacteria Urine None Seen /hpf; Bilirubin Urine Negative (Negative); Blood Urine Negative (Negative); Color Urine Dark Yellow (Yellow); Glucose Urine UA Negative (Negative); Hyaline Casts Urine Present /lpf; Ketones Urine Trace mg/dL (Negative); Leukocyte Esterase Ur Negative LEU/UL (Negative); Need Manual Microscopic Reviewed; Nitrate Urine Negative (Negative); Non Pathogenic Casts >20; Protein Urine 2+ mg/dL (Negative); RBC Urine 0-2 /hpf (0-2); Specific Grav Ur 1.018 (1.001-1.035); Squamous Epithelial Cell Urine Few /hpf (Few); WBC Urine 0-5 /hpf (0-3); pH Urine 5.5 (5.0-9.0)
== END 2024-02-14 12:50 | disposition home or self-care (01) ==
PROVIDERS: Emergency Provider Emergency Medicine
DX: K29.80 Duodenitis without bleeding (principal); K52.9 Noninfective gastroenteritis and colitis, unspecified; E03.9 Hypothyroidism, unspecified; E78.5 Hyperlipidemia, unspecified
CPT/HCPCS: 36415; 80053; 81001; 83690; 85025; 96361; 96374; 96375; 99284; J0780; J2405; J7030